=== PATIENT | male | born 1970 | race Caucasian/White ===

== ENCOUNTER 2016-10-23 21:41 | Emergency (ER) | payer MEDICARE ==
[2016-10-23 22:05] LABS: BASOPHILS 0.4 % (0.0-2.0); EOSINOPHILS 2.9 % (0-7); HEMATOCRIT 48.4 % (42.0-54.0); HEMOGLOBIN 16.5 g/dL (13.5-17.5); IMMATURE GRANULOCYTES 0.3 % (0-5); LYMPHOCYTES 33.9 % (15-50); MCH 32.9 pg (26.0-34.0); MCHC 34.1 g/dL (31.0-37.0); MCV 96.6 fL (80.0-100.0); MEAN PLATELET VOLUME 9.7 fL (7.4-10.4); MONOCYTES 5.7 % (2-11); NEUTROPHILS 56.8 % (40-80); PLATELET COUNT 281 10x3/uL (130-400); RBC 5.01 10x6/uL (4.20-6.10); RDW 14.1 % (11.5-14.5)
[2016-10-23 22:16] LABS: ALBUMIN 3.9 g/dL (3.4-5.0); ALKALINE PHOSPHATASE 104 U/L (46-116); BILIRUBIN - TOTAL 0.26 mg/dL (0.2-1.3); CALC OSMOLALITY 280 mosm/kg (275-300); CALCIUM 8.8 mg/dL (8.5-10.1); CARBON DIOXIDE 31.2 mmol/L (21.0-32.0); CHLORIDE - SERUM 101 mmol/L (98-107); CREATININE - SERUM 0.9 mg/dL (0.6-1.3); GLUCOSE 137 mg/dL (74-106); PROTEIN - SERUM 7.8 g/dL (6.4-8.2); SODIUM 140 mmol/L (136-145); UREA NITROGEN 12 mg/dL (7-18); eGFR NON AFRICAN AMERICAN > 90 mL/min (90-120)
[2016-10-23 22:17] LABS: ALT (SGPT) 43 U/L (10-68)
[2016-10-23 22:20] LABS: APPEARANCE CLEAR (CLEAR); BILIRUBIN NEGATIVE (NEGATIVE); COLOR YELLOW (YELLOW); GLUCOSE NEGATIVE (NEGATIVE); KETONE NEGATIVE (NEGATIVE); LEUKOCYTE ESTERASE NEGATIVE (NEGATIVE); NITRITE NEGATIVE (NEGATIVE); PROTEIN NEGATIVE (NEGATIVE); SPECIFIC GRAVITY 1.015 (1.005-1.020); UROBILINOGEN NORMAL (NORMAL)
== END 2016-10-23 23:37 | disposition home or self-care (01) ==
LOC: D.ER 21:41
PROVIDERS: Emergency Medicine
DX: N45.1 Epididymitis (principal); F41.9 Anxiety disorder, unspecified; K21.9 Gastro-esophageal reflux disease without esophagitis; I10 Essential (primary) hypertension; E03.9 Hypothyroidism, unspecified; K27.9 Peptic ulcer, site unspecified, unspecified as acute or chronic, without hemorrhage or perforation; G25.81 Restless legs syndrome

== ENCOUNTER 2016-10-29 02:02 | Emergency (ER) | payer MEDICARE | END 2016-10-29 03:35 | disposition home or self-care (01) | LOC: D.ER 02:02 | DX: N45.1 Epididymitis (principal); F41.9 Anxiety disorder, unspecified; K21.9 Gastro-esophageal reflux disease without esophagitis; I10 Essential (primary) hypertension; E03.9 Hypothyroidism, unspecified; K27.9 Peptic ulcer, site unspecified, unspecified as acute or chronic, without hemorrhage or perforation; G25.81 Restless legs syndrome; F17.200 Nicotine dependence, unspecified, uncomplicated ==

== ENCOUNTER 2016-11-26 20:47 | Emergency (ER) | payer MEDICARE | END 2016-11-26 22:15 | disposition home or self-care (01) | LOC: D.ER 20:47 | DX: S83.8X1A Sprain of other specified parts of right knee, initial encounter (principal); W19.XXXA Unspecified fall, initial encounter; Y93.89 Activity, other specified; Y92.019 Unspecified place in single-family (private) house as the place of occurrence of the external cause; F41.9 Anxiety disorder, unspecified; K21.9 Gastro-esophageal reflux disease without esophagitis; I10 Essential (primary) hypertension; E03.9 Hypothyroidism, unspecified; K27.9 Peptic ulcer, site unspecified, unspecified as acute or chronic, without hemorrhage or perforation; G25.81 Restless legs syndrome; F17.200 Nicotine dependence, unspecified, uncomplicated ==

== ENCOUNTER 2017-01-30 21:34 | Observation (INO) | payer MEDICARE ==
[~2017-01-30] VITALS: Ht 167.6 cm; Wt 119.1 kg
--- NOTE | ~2017-01-30 | HEMODYNAMI ---
PATIENT:CURTIS MADERA MEDICAL RECORD: [id number] : 72 LOCATION:[facility] ADMISSION DATE: 01/30/17 Generatedon:01/31/201713:06 Patient name: CURTIS MADERA Patient #: [id number] SSN: : Date of study: 01/31/2017 Page: Of Hemodynamic Procedure Report Patient Data Patient Demographics Procedure consent was obtained First Name: CURTIS Gender: Male Last Name: SANTY : 1970 Patient #: [id number] Age: 46 year(s) Race: Unknown Additional ID: [id number] Contact details Address: [address] [place] [address] [address]IVE State: [place] City: [place] Zip code: [address] Past Medical History Allergies Allergen Reaction Date Comments Reported Sulfa drugs 01/31/2017 Penicillins 01/31/2017 Other allergy 01/31/2017 TRAMADOL Admission Admission Data Admission Date: 01/30/2017 Admission Time: 23:52 Room #: [facility] Height (in.): 67 BSA: 2.22 (m2) Height (cm.): 170.18 BMI: 39.16 (kg/m2) Weight (lbs.): 250.01 Weight (kg.): 113.4 Lab Results Lab Result Date: 01/31/2017 Lab Result Time: 0:00 Biochemistry Name Units Result Min Max BUN mg/dl 18 --(---*)-- 7 18 Creatinine mg/dl 0.9 --(-*--)-- 0.6 1.3 Troponin l ng/ml 0.017 --(-*--)-- 0 0.06 CBC Name Units Result Min Max Hemoglobin g/dl 16.2 --(--*-)-- 13.5 17.5 Procedure Procedure Types Cath Procedure Diagnostic Procedure [facility] w/Coronaries FFR/IVUS Intra-Coronary IVUS Initial PCI Procedure Coronary Stent Initial Miscellaneous Procedures Moderate Sedation up to 30 minutes Procedure Description Procedure Date Procedure Date: 01/31/2017 Procedure Start Time: 12:42 Procedure End Time: 13:01 Procedure Staff Name Function Praveen Hu MD Performing Physician Chiara Betancourt RN Nurse Howie Garcia RT Monitor Yung Campos RT Scrub Procedure Data Cath Procedure Fluoroscopy Diagnostic fluoroscopy Total fluoroscopy Time: 5 time: 5 min min Diagnostic fluoroscopy Total fluoroscopy dose: 869 dose: 869 mGy mGy Contrast Material Contrast Material Type Amount (ml) Isovue 300 101 Entry Location Entry Primary Successful Side Size Upsize Upsize Entry Closure Baca ccessful Closure Location (Fr) 1 (Fr) 2 (Fr) Remarks Device Remarks Radial Right 6 Fr Mechanical artery Short Compression Diagnostic catheters Device Type Used For End Catheter Placement Terumo 5Fr [place] 110cm LV Angiography catheter Diagnostic Infinity 5Fr Right Coronary AR 2 MOD catheter Angiography Procedure Complications No complications Procedure Medications Medication Administration Route Dosage Oxygen NC 2 l/min Heparin Flush Bag added to field 2 bags (1000units/500ml NS) Lidocaine 2% added to field 20 Radial Cocktail added to field 1 syringe (Verapomil 2mg/Nitro 400mcg/Heparin 1500units) Versed I.V. 1 mg Fentanyl 50 mcg Versed I.V. 1 mg Fentanyl 50 mcg Radial Cocktail I.A. 1 syringe (Verapomil 2mg/Nitro 400mcg/Heparin 1500units) Versed I.V. 1 mg Fentanyl 50 mcg Versed I.V. 1 mg Fentanyl 50 mcg Heparin Bolus I.V. 4000 units Hemodynamics Rest BSA: 2.22 (m2) HGB: 16.2 (g/dl) O2 Consumption: Estimated: 279.46 (ml/min) O2 Co nsumption indexed: Estimated:125.88 (ml/min/m) Heart Rate: 83 (bpm) Pressure Samples Time Site Value (mmHg) Purpose Heart Use Rate(bpm) 12:43 AO 88/6(17) Snapshot 85 Snapshots Pre Cath Intra NCS Post Cath Vital Signs Time Heart Resp SPO2 etCO2 MD3kqoa NIBP (mmHg) Rhythm Pain Sedat ion Rate (ipm) (%) (mmHg) (mmHg) Status Level (bpm) 12:24:50 81 16 100 0 0 148/102(117) NSR 6 (11) , 10(A) Intense 12:29:06 83 20 97 0 0 154/90(109) NSR 6 (11) , 10(A) Intense 12:33:28 80 16 98 0 0 125/67(107) NSR 6 (11) , 10(A) Intense 12:37:42 80 16 100 0 0 120/77(91) NSR 6 (11) , 10(A) Intense 12:41:56 80 19 99 0 0 131/72(94) NSR 6 (11) , 10(A) Intense 12:46:12 86 16 86 0 0 107/49(78) NSR 3 (11) , 10(A) Tolerable 12:50:18 77 16 96 0 0 100/61(82) NSR 1 (11) , 10(A) Very mild 12:54:30 79 16 100 0 0 116/58(76) NSR 1 (11) , 10(A) Very mild 12:58:23 80 14 98 0 0 114/73(91) NSR 1 (11) , 10(A) Very mild Medications Time Medication Route Dose Verified Delivered Reason Note s Effectiveness by by 12:24:26 Oxygen NC 2 l/min Praveen Chiara Per physician Fritz Betancourt RN 12:24:35 Heparin Flush added 2 bags Praveenlisa Morton used for Bag to Fritz Hu MD procedure (1000units/500ml field NS) 12:24:44 Lidocaine 2% added 20ml Praveen Praveen used for to vial Fritz Hu MD procedure field 12:24:51 Radial Cocktail added 1 Praveen Praveen used for (Verapomil to syringe Fritz Hu MD procedure 2mg/Nitro field 400mcg/Heparin 1500units) 12:37:21 Versed I.V. 1 mg Praveen Chiara for sedation Fritz Betancourt RN 12:37:26 Fentanyl 50 mcg Praveen Chiara for sedation Fritz Betancourt RN 12:39:45 Versed I.V. 1 mg Praveen Chiara for sedation Fritz Betancourt RN 12:39:48 Fentanyl 50 mcg Praveen Chiara for sedation Fritz Betancourt RN 12:41:07 Versed I.V. 1 mg Praveen Chiara for sedation Fritz Betancourt RN 12:41:17 Fentanyl 50 mcg Praveen Chiara for sedation Fritz Betancourt RN 12:43:02 Radial Cocktail I.A. 1 Praveen Praveen for (Verapomil syringe Fritz Hu MD vasodilation 2mg/Nitro 400mcg/Heparin 1500units) 12:44:41 Versed I.V. 1 mg Praveen Cleaningca for sedation Fritz Betancourt RN 12:44:47 Fentanyl 50 mcg Praveen Guadarrama for sedation Fritz Betancourt RN 12:54:00 Heparin Bolus I.V. 4000 Praveen Guadarrama for dose units Fritz Betancourt RN anticoagulation verified with dr hu Procedure Log Time Note 12:06:48 Yung Campos RT(R) sent for patient. Start room use. 12:06:49 Time tracking: Regular hours 12:06:53 Plan of Care:Hemodynamics will remain stable., Cardiac rhythm will remain stable., Comfort level will be maintained., Respiratory function will remain adequate., Patient/ family verbilizes understanding of procedure., Procedure tolerated without complication., Recovers from procedure without complications.. 12:20:31 Patient received from PCU to CCL 1 Alert and oriented. Tansferred to table in Supine position. 12:23:32 Warm blankets applied, and ledy hugger turned on for patient comfort. 12:23:32 Correct patient and procedure confirmed by team. 12:23:33 Signed procedure consent form obtained from patient. 12:23:34 ECG and BP/O2 sat monitors applied to patient. 12:23:44 Vital chart was started 12:24:26 Oxygen 2 l/min NC was administered by Chiara Betancourt RN; Per physician; 12:24:35 Heparin Flush Bag (1000units/500ml NS) 2 bags added to field was administered by Praveen Hu MD; used for procedure; 12:24:44 Lidocaine 2% 20ml vial added to field was administered by Praveen Hu MD; used for procedure; 12:24:51 Radial Cocktail (Verapomil 2mg/Nitro 400mcg/Heparin 1500units) 1 syringe added to field was administered by Praveen Hu MD; used for procedure; 12:29:03 Baseline sample Acquired. 12:29:07 Rhythm: sinus rhythm 12:29:08 Full Disclosure recording started 12:29:24 H&P Date Dictated: 01/31/2017 Within 30 days and on chart.. 12:29:25 Pre-procedure instructions explained to patient. 12:29:26 Pre-op teaching completed and patient verbalized understanding. 12:29:28 Family unavailable. 12::29 Patient NPO since Midnight. 12:30:30 Patient allergic to Sulfa drugs 12:30:36 Patient allergic to Penicillins 12:31:06 Patient allergic to Other allergyTRAMADOL 12:31:08 Is the patient allergic to Iodine/contrast media? No. 12:31:15 Is patient on blood thinner?Yes 12:31:18 ACC The patient was administered the following blood thiners within the last 24 hours: ACCPlavix 12:31:19 Patient diabetic? No. 12:31:20 ----Pre-sedation anethsthesia assessment.---- 12:31:22 Previous problem with sedation/anesthesia? No ? 12:31:23 Snore? Yes 12:31:25 Sleep apnea? No 12:31:26 Deviated septum? No 12:31:27 Opens mouth fully? Yes 12:31:29 Sticks out tongue? Yes 12:31:31 Airway obstruction? No ? 12:31:33 Dentures? No ? 12:31:36 Pre procedure: right dorsailis pedis pulse 1+ Palpable, but thready & weak; easily obliterated 12:31:38 Modified Jose's test Ulnar > 7 seconds. 12:31:43 Patient pain scale 6/10 CP. 12:31:48 IV patent on arrival in left hand with 0.9% NaCl at 10ml/hr. 12:32:25 Lab Result : BUN 18 mg/dl 12:32:25 Lab Result : Creatinine 0.9 mg/dl 12:32:25 Lab Result : Hemoglobin 16.2 g/dl 12:32:25 Lab Result : Troponin l 0.017 ng/ml 12:32:28 Lab results completed and on chart. 12:32:31 Right Radial & Right Groin area was prepped with chlora-prep and draped in sterile fashion 12:32:32 Alarms reviewed by R. N. 12:32:32 Sharps counted by scrub and verified by R.N. 12:36:22 --------ALL STOP TIME OUT------ 12:36:23 Final Timeout: patient, procedure, and site verified with staff and physician. All members of the team are in agreement. 12:36:26 Right Radial & Right Groin site verified by team. 12:36:29 Physical assessment completed. ASA score P 2 - A patient with mild systemic disease as per Praveen Hu MD. 12:36:33 Sedation plan: IV Moderate Sedation Versed, Fentanyl 12:37:21 Versed 1 mg I.V. was administered by Chiara Betancourt RN; for sedation; 12:37:26 Fentanyl 50 mcg was administered by Chiara Betancourt RN; for sedation; 12:39:45 Versed 1 mg I.V. was administered by Chiara Betancourt RN; for sedation; 12:39:48 Fentanyl 50 mcg was administered by Chiara Betancourt RN; for sedation; 12:41:07 Versed 1 mg I.V. was administered by Chiara Betancourt RN; for sedation; 12:41:17 Fentanyl 50 mcg was administered by Chiara Betancourt RN; for sedation; 12:41:29 Use device set Radial Dx 12:41:30 Acist Syringe opened to sterile field. 12:41:31 Medline Cath Pack opened to sterile field. 12:41:31 Bag Decanter opened to sterile field. 12:41:31 Terumo 6Fr Slender Glidesheath opened to sterile field. 12:41:32 St Tito 260cm J .035 wire opened to sterile field. 12:41:32 Acist Hand Control opened to sterile field. 12:41:32 Acist Manifold opened to sterile field. 12:41:33 Tegaderm 4 x 4 opened to sterile field. 12:41:33 MBrace Wrist Support opened to sterile field. 12:41:40 Procedure started. 12:42:04 Local anesthetic to right radial artery with Lidocaine 2% by Praveen Hu MD.INITIAL ACCESS ONLY 12:42:12 A 6 Fr Short sheath was inserted into the Right Radial artery 12:42:27 A Terumo 5Fr [place] 110cm catheter was advanced over the wire and used for LV Angiography. 12:42:33 LV angiography performed. 12:42:36 LV gram done using ZENDEJAS 12:42:46 Injector settings: Ml/sec: 5, Volume: 15, 12:43:02 Radial Cocktail (Verapomil 2mg/Nitro 400mcg/Heparin 1500units) 1 syringe I.A. was administered by Praveen Hu MD; for vasodilation; 12:43:29 EF : 60 % 12:44:41 Versed 1 mg I.V. was administered by Chiara Betancourt RN; for sedation; 12:44:47 Fentanyl 50 mcg was administered by Chiara Betancourt RN; for sedation; 12:45:49 LCA angiography performed. 12:45:51 Catheter removed. 12:46:32 A Diagnostic Infinity 5Fr AR 2 MOD catheter was advanced over the wire and used for Right Coronary Angiography. 12:46:39 RCA angiography performed. 12:47:26 Catheter removed. 12:47:44 Flores KnexxLocalisper J 300cm 0.014 guide wire opened to sterile field. 12:47:44 LoanHero BasixCompak Inflation Kit opened to sterile field. 12:48:59 Kinvey [place] Eagleye IVUS Catheter opened to sterile field. 12:49:00 Flickmetronic Launcher 6Fr AR 2.0 guide catheter opened to sterile field. 12:49:38 6 Fr AR 2 guide catheter was inserted over the wire 12:49:41 TrueViewISPER wire advanced. 12:49:43 FFR/IVUS 12:49:44 IVUS catheter advanced over wire. 12:49:46 IVUS pass to RCA lesion performed. 12:54:00 Heparin Bolus 4000 units I.V. was administered by Chiara Betancourt RN; for anticoagulation; dose verified with dr hu 12:54:43 IVUS catheter removed over wire. 12:54:46 Wire removed. 12:55:27 WHISPER wire advanced. 12:56:22 Inflation Number: 1 A Biofreedom 3.0 x 28 stent (No Cost Implant) was prepped and advanced across the Mid RCA. The stent was deployed at 15 ENEDELIA for 0:12 (min:sec). 12:56:24 Stent catheter was removed intact over wire. 12:56:25 Wire removed. 12:56:25 Guide catheter removed. 12:56:31 Contrast amount:Isovue 300 101ml. 12:56:37 Sheath removed intact; hemostasis achieved with Mechanical Compression to the Right Radial artery. 12:56:38 Procedure ended.(Physican Out) 12:57:07 Fluoroscopy time 05.00 minutes. 12:57:11 Fluoroscopy dose: 869 mGy 12:57:11 Flurop Dose total: 869 12:57:35 Sharps counted by scrub and verified by R.N. 12:58:36 TR band inflated with 10cc of air. 12:59:10 Insertion/operative site no bleeding no hematoma. 12:59:12 Post-op/insertion site Right Femoral artery dressed using a 4 x 4 and Tegaderm. 12:59:15 Post right femoral artery:stable 12:59:18 Post Procedure Pulses reassessed and unchanged 12:59:21 Post-procedure physical assessment completed. ASA score P 2 - A patient with mild systemic disease as per Praveen Hu MD. 12:59:24 Post procedure rhythm: sinus rhythm 12:59:25 Post procedure instruction explained to patient.Patient verbalizes understanding. 12:59:47 Procedure type changed to Cath procedure, Diagnostic procedure, LHC, LHC w/Coronaries, FFR/IVUS, Intra-Coronary IVUS Initial, PCI procedure, Coronary Stent Initial, Miscellaneous Procedures, Moderate Sedation up to 30 minutes 12:59:50 Procedure and supply charges have been captured, reviewed, submitted and are correct. 13:00:11 Terumo TR Band Standard opened to sterile field. 13:00:46 Procedure Complication : No complications 13:00:49 Vital chart was stopped 13:00:49 See physician's report for complete and final results. 13:00:52 Report given to PCU. 13:00:56 Patient transfered to PCU with Bed. 13:01:01 Procedure ended. 13:01:01 Full Disclosure recording stopped 13:01:09 End room use (Document Last) 13:01:13 ACC-PCI Only Patient was given prescriptions, or instructed by Praveen Hu MD to start/continue the following medications upon discharge: Plavix 13:04:55 Patient Height : 67 cm 13:04:59 Patient Weight : 250.01 kg Intervention Summary Intervention Notes Time ActionType Lesion and Equipment Action# Pressure Duration Attributes Used 12:56:22 Place stent Mid RCA Biofreedom 1 15 00:12 3.0 x 28 stent (No Cost Implant) Device Usage Item Name Manufacture Quantity Catalog Hospital Part Current Minimal Lot# / Number Charge Number Stock Stock Serial# Code Acist Acist 1 32628 961946 837060 588005 20 Syringe Medical Systems Inc Medline Cardinal 1 [id number] 272598 02607 983841 5 Cath Pack Health Bag Microtek 1 2001S 2271254 94005 214842 5 Decanter Medical Inc. Terumo 6Fr Terumo 1 [id number] 683977 712706 316791 [address] Tito St Tito 1 337453 475922 550685 538548 30 260cm J .035 wire Acist Hand Acist 1 09671 930374 481844 687511 5 Control Medical Systems Inc Acist Acist 1 93994 226941 741507 556029 5 Manifold Medical Systems Inc Tegaderm 4 3M 1 1626W 909342 315499 133185 5 x 4 MBrace Advanced 1 140-0250-00 068120 17361 627641 5 Wrist Vascular Support Dynamics Terumo 5Fr Terumo 1 88-6669 305329 398213 312724 5 [place] 110cm catheter Diagnostic Cardinal 1 [id number] 191785 602165 276297 20 Telovations Health 5Fr AR 2 MOD catheter Flores Flores 1 [id number] 454001 201135 303902 5 Whisper J Vascular 300cm 0.014 guide wire Merit Merit 1 [id number] 042771 167241 209353 15 [facility] Medical Inflation Kit [place] 1 [id number] 356523 208806 753344 8 [place] Eagleye IVUS Catheter Medtronic Medtronic 1 [id number] 450933 09840 908667 1 Launcher 6Fr AR 2.0 guide catheter Biofreedom Biosensors 1 [id number] 066480 952189 5 [id number] 3.0 x 28 [place] SA stent (No Cost Implant) Terumo TR Terumo 1 [id number] 754586 723830 657911 40 Band Standard Signature Audit [place] Stage Time Signature Unsigned Intra-Procedure 01/31/2017 Howie Garcia 1:06:35 PM RT(R) Signatures Monitor : Howie Garcia RT Signature : Date : Time : [facility] [address] [place] [address]
[2017-01-30 22:20] LABS: BASOPHILS 0.3 % (0-2); EOSINOPHILS 1.7 % (0-7); HEMATOCRIT 47.4 % (42.0-54.0); HEMOGLOBIN 16.2 g/dL (13.5-17.5); IMMATURE GRANULOCYTES 0.2 % (0-5); LYMPHOCYTES 31.4 % (15-50); MCH 32.3 pg (26.0-34.0); MCHC 34.2 g/dL (31.0-37.0); MCV 94.4 fL (80.0-100.0); MEAN PLATELET VOLUME 9.9 fL (7.4-10.4); MONOCYTES 6.7 % (2-11); NEUTROPHILS 59.7 % (40-80); PLATELET COUNT 324 10x3/uL (130-400); RBC 5.02 10x6/uL (4.20-6.10); RDW 13.9 % (11.5-14.5); WBC 11.4 10x3/uL (4.8-10.8)
[2017-01-30 22:46] LABS: ALBUMIN 4.2 g/dL (3.4-5.0); ALKALINE PHOSPHATASE 116 U/L (46-116); ALT (SGPT) 68 U/L (10-68); BILIRUBIN - TOTAL 0.48 mg/dL (0.2-1.3); CALC OSMOLALITY 281 mosm/kg (275-300); CALCIUM 9.4 mg/dL (8.5-10.1); CARBON DIOXIDE 27.9 mmol/L (21.0-32.0); CHLORIDE - SERUM 101 mmol/L (98-107); CREATININE - SERUM 0.9 mg/dL (0.6-1.3); GLUCOSE 123 mg/dL (74-106); POTASSIUM - SERUM 3.5 mmol/L (3.5-5.1); PROTEIN - SERUM 8.2 g/dL (6.4-8.2); SODIUM 140 mmol/L (136-145); UREA NITROGEN 18 mg/dL (7-18); eGFR NON AFRICAN AMERICAN > 90 mL/min (90-120)
[2017-01-30 22:55] LABS: CHOLESTEROL, TOTAL 220 mg/dL (0-200); CKMB 0.1 U/L (0.0-3.6); CREATINE KINASE 62 UL (21-232); HDL CHOLESTEROL 37 mg/dL (32-96); LDL CHOLESTEROL 130 mg/dL (0-100); LDL-HDL RATIO 3.5 ratio (1.5-3.5); TRIGLYCERIDE 269 mg/dL (30-200)
[2017-01-30 22:58] LABS: TROPONIN-I < 0.017 ng/mL (0.000-0.060)
[2017-01-31] VITALS: BP 141/84
[2017-01-31] MEDS ORDERED: VIIBRYD40 MG PO (00:40)
[2017-01-31] MEDS ORDERED: LEVOTHYROXINE100 MCG PO (00:40)
[2017-01-31] MEDS ORDERED: NEXIUM40 MG PO (00:41)
[2017-01-31] MEDS ORDERED: ROPINIROLE HCL2 MG PO (00:41)
[2017-01-31] MEDS ORDERED: ZESTORETIC 20-1 EACH PO (00:42)
[2017-01-31] MEDS ORDERED: OXYCODONE HCL10 MG PO (00:42)
--- NOTE | 2017-01-31 00:47 | NUR ---
PT C/O CHEST PAIN 10/10 ON ARRIVAL TO THE FLOOR.PER REPORT PT RECEIVED NITRO X2 IN ER AND A NITRO PATCH. PER THE PT THE NITRO ALREADY GIVEN HAS GIVEN VERY LITTLE RELIEF. CALL TO DR OHARA FOR FURTHER ORDERS FOR PAIN MEDICATION ORDERS.
[2017-01-31 01:32] VITALS: BP 141/84; Ht 167.6 cm; Wt 119.1 kg
[2017-01-31 02:45] LABS: CKMB 0.3 U/L (0.0-3.6); CREATINE KINASE 60 UL (21-232)
[2017-01-31 02:56] LABS: TROPONIN-I < 0.017 ng/mL (0.000-0.060)
[2017-01-31 04:00] VITALS: BP 143/87
[2017-01-31 08:29] VITALS: BP 138/90
[2017-01-31 08:42] LABS: CKMB 0.6 U/L (0.0-3.6); CREATINE KINASE 69 UL (21-232)
[2017-01-31 08:44] LABS: TROPONIN-I < 0.017 ng/mL (0.000-0.060)
[2017-01-31 12:05] VITALS: BP 136/74
--- NOTE | 2017-01-31 12:27 | NUR ---
PRE-OPS GIVEN. TO WARRANTY CLERK BY BED.
[2017-01-31] MEDS ORDERED: ASPIRIN81 MG PO (14:19)
[2017-01-31] MEDS ORDERED: PLAVIX75 MG PO (14:19)
[2017-01-31 15:05] LABS: CKMB 0.4 U/L (0.0-3.6); CREATINE KINASE 125 UL (21-232)
[2017-01-31 15:06] LABS: TROPONIN-I < 0.017 ng/mL (0.000-0.060)
[2017-01-31 16:00] VITALS: BP 142/81
--- NOTE | 2017-01-31 16:53 | NUR ---
TR BAND DCD WITHOUT BLEEDING OR HEMATOMA NOTED. EKG AND BLOOD DRAW COMPLETED.
--- NOTE | 2017-01-31 17:08 | NUR ---
IV AND TELEMETRY DCD. DC PLANS GIVEN. UNDERSTANDING VOICED. LEAVING HOSP WITH FRIEND.
--- NOTE | 2017-02-01 18:08 | OP ---
PATIENT NAME: CURTIS MADERA MEDICAL RECORD: [id number] :72 LOCATION:D.M2 D.2117 ADMISSION DATE:01/30/17 SURGEON: MARCY OHARA MD DATE OF OPERATION: 01/31/2017 PROCEDURES: 1. PTCA stent of the RCA. 2. Intravascular ultrasound. 3. Left heart catheterization. 4. Selective coronary angiography. 5. Left ventriculogram. INDICATION: Chest pain compatible with angina. PROCEDURE PERFORMED: After informed consent was obtained and after detailed explanation of risks, benefits as well as alternative therapies, the patient elected to proceed with angiogram and angioplasty. The right radial area was prepped and draped in normal sterile fashion. The right radial artery was cannulated via modified Seldinger technique with placement of 6-Faroese sheath. All catheters exchanged through this sheath. FINDINGS: Left ventriculogram was performed in standard 30-degree ZENDEJAS view, reveals good cardiac wall motion throughout all segments. Overall ejection fraction estimated 60%. SELECTIVE CORONARY ANGIOGRAPHY: 1. Left main showed no significant angiographic disease. 2. Left anterior descending has moderate irregularities, but no flow-limiting stenosis. 3. The left circumflex shows moderate irregularities, but no flow-limiting stenosis. 4. Right coronary has greater than 70% stenosis throughout the entire mid vessel confirmed by intravascular ultrasound. PTCA STENT OF THE RIGHT CORONARY ARTERY: The stent used is a 3.0 x 28 mm BioFreedom. The lesion was 25 mm long, MONSE 3 flow before and after the intervention in a 3.0 vessel. OVERALL IMPRESSION: Successful percutaneous transluminal coronary angioplasty stent of the right coronary artery going from greater than 70% initial stenosis to 0% residual. TRANSINT:[id number] Voice Confirmation ID: [id number] DOCUMENT ID: [id number] MARCY OHARA MD at 1808 CC: [id number] DICTATION DATE: 01/31/17 1311 FOAM CHARGER: 01/31/179 DIS IN 01/31/[address] [address]
--- NOTE | 2017-02-01 18:08 | HP ---
PATIENT: CURTIS MADERA MEDICAL RECORD: [id number] ACCOUNT: [id number] LOCATION:[address] : 72 ADMISSION DATE: 01/30/17 HISTORY AND PHYSICAL EXAMINATION DIAGNOSES: 1. Unstable angina. 2. Coronary artery disease. 3. Strong family history of coronary artery disease. 4. Hypertension. 5. Hypothyroidism, on replacement. 7. History of gastrointestinal bleed. 8. Gastroesophageal reflux disease. HISTORY OF PRESENT ILLNESS: This is a gentleman who presents with chest pain. Two weeks ago, he presented to [facility] with chest pain. He was told he had an elevated troponin. He had an evaluation with stress test. He was told that this was normal. He has continued to have episodes of chest pain. He presents now to our facility with chest pain. His EKG is with nonspecific ST-T abnormalities inferolaterally. He has a history of GI bleed approximately 2 years ago. He states that he has ongoing GERD and cannot take a prolonged antiplatelet therapy secondary to this. He cannot take even prolonged aspirin without recurrent severe GERD despite his GI medication, which is Nexium. PHYSICAL EXAMINATION: GENERAL APPEARANCE: Well-nourished, well-developed, appears stated age. Level of distress, comfortable. PSYCHIATRIC: Mental status, alert, normal affect. Orientation, oriented to time, place and person. EYES: Lids and conjunctiva, noninjected. No discharge, no pallor. ENT: Lips, teeth, gums, normal dentition. Oropharynx, no cyanosis, no pallor. NECK: Carotid arteries, bilateral normal upstroke, no bruits, no thrills. JUGULAR VEINS: No jugular venous pressure or distention. CERVICAL LYMPH NODES: Nontender, nonenlarged. THYROID: Not enlarged. Nontender. No nodules. LUNGS: Respiratory effort, unlabored. CHEST: Normal curvature. No thoracic deformity. No chest wall tenderness. Percussion, resonant. Auscultation, clear. No wheezes, no rales, no rhonchi. CARDIOVASCULAR: Precordial exam, nondisplaced. No heaves or pericardial thrills. Rate and rhythm, regular. Heart sounds, normal S1, normal S2. No S3, no gallop, no rub. Systolic murmur, not heard. Diastolic murmur, not heard. EXTREMITIES: No cyanosis, no edema. Peripheral pulses, full and equal in all extremities, except as noted. No bruits appreciated. ABDOMEN: Soft, nondistended. Normal aorta. No bruit. Nontender. No masses. Liver, nontender, no hepatomegaly. Spleen, nontender, no splenomegaly. MUSCULOSKELETAL: No joint tenderness. No joint swelling. No erythema. NEUROLOGICAL: Normal gait, normal strength, normal tone. SKIN: Warm and dry. REVIEW OF SYSTEMS: The patient reports easy bruising but reports no swollen glands. The patient reports no fever, no night sweats, no significant weight gain, no significant weight loss. No significant exercise tolerance. The patient reports no dry eyes, no irritation, no vision change. Patient reports no difficulty hearing and no ear pain. Patient reports no frequent nose bleeds or nose and sinus problems. Patient reports on arm pain on exertion. No HISTORY AND PHYSICAL [id number] CUTRIS MADERA shortness of breath while lying down. No history of heart murmur. Patient reports no cough, no wheezing or coughing up blood. Patient reports no abdominal pain, no vomiting. Normal appetite. No diarrhea and not vomiting blood. No nausea and no constipation. Patient reports no incontinence. No difficulty urinating. No hematuria. No increased frequency. Patient reports no muscle aches. No weakness, no arthralgias, no back pain. No swelling of the extremities. Patient reports no abnormal mole, no jaundice, no rashes. Reports no loss of consciousness. No weakness and no numbness. No seizures, dizziness, or headaches. The patient reports no depression, no sleep disturbance, feeling safe in a relationship and no alcohol abuse. Patient reports on fatigue. Reports no runny nose or sinus pressure. No itching, no hives, and no frequent sneezing. OVERALL IMPRESSION: Chest pain compatible with angina in the usual history that he had a positive troponin. Continued to have chest pain, but no cardiac catheterization was performed. We will plan for cardiac catheterization. We will make sure we use a stent only 30 days of Plavix secondary to the intolerance of antiplatelet medications with his history of GI bleed and severe gastroesophageal reflux disease. TRANSINT:[id number] Voice Confirmation ID: [id number] DOCUMENT ID: [id number] MARCY OHARA MD at 1808 CC: [id number] DICTATION DATE: 01/31/17 1304 CAFETERIA COUNTER ATTENDANT: 01/31/17 1635 DIS IN 01/31/17 [facility] [address] [facility]
== END 2017-01-31 17:18 | disposition home or self-care (01) ==
LOC: D.ER 21:34 → OBSVTIME 23:52 → D.M2 23:52
PROVIDERS: Emergency Medicine; ADMIT Internal Medicine Interventional Cardiology
DX: I25.110 Atherosclerotic heart disease of native coronary artery with unstable angina pectoris (principal); Z00.6 Encounter for examination for normal comparison and control in clinical research program; I10 Essential (primary) hypertension; E03.9 Hypothyroidism, unspecified; K21.9 Gastro-esophageal reflux disease without esophagitis
CPT/HCPCS: 93458; 92978; C9600

== ENCOUNTER 2017-02-02 23:14 | Observation (INO) | payer MEDICARE ==
[~2017-02-02] VITALS: Ht 167.6 cm; Wt 122.3 kg
--- NOTE | ~2017-02-02 | OP ---
PATIENT NAME: CURTIS MADERA MEDICAL RECORD: [id number] :72 LOCATION:D.M2 D.2103 ADMISSION DATE:02/03/17 SURGEON: ABBIE STARKS M.D. DATE OF OPERATION: 02/03/2017 Catheterization Report PROCEDURES PERFORMED: 1. Selective coronary artery disease. 2. Left heart catheterization with ventriculogram. 3. Aortic root injection. INDICATION: A 46-year-old gentleman status post stenting 2 days ago, presents with recurrent angina. He has not taken his antiplatelet therapy. EQUIPMENT USED: A 5-Indonesian JL4, Glen right, pigtail catheter. DESCRIPTION OF PROCEDURE: A 5-Indonesian sheath was inserted in retrograde fashion in the right common femoral artery. Next, selective coronary angiography was performed in standard 5-Indonesian JL4 and Glen right. Left heart catheterization performed using pigtail catheter. The pigtail catheter was then pulled back in the ascending aorta to visualize the aortic root. CORONARY ANATOMY: 1. Left main: Left main trunk is large in caliber. It gives rise to the LAD and circumflex. There is no obstruction. 2. LAD: This is a large caliber vessel extending to the apex. There is a smooth smooth-walled vessel and angiographically normal. 3. Circumflex: This vessel is moderate in caliber. It provides the lateral branch in mid segment. The circumflex and lateral branch are smooth-walled and vessel is angiographically normal. 4. Right coronary: This vessel is moderate in caliber and dominant. The mid vessel has been stented. The stent is widely patent. There is no evidence of restenosis or thrombosis. 5. Left ventricle: Left ventricle is normal in size and function. No wall motion abnormalities are seen. Its ejection fraction is 55%. 6. Ascending aorta: Because of the patient's persistent chest pain, aortogram was performed to rule out dissection. The ascending aorta is normal size. There is no insufficiency. There is no evidence of stenosis. There is no evidence of dissection. IMPRESSION: 1. Widely patent stent in the right coronary artery without evidence of thrombosis. 2. Normally ascending aorta. RECOMMENDATIONS: I suspect his chest pain is noncardiac in origin. I will place him back on Effient and continue with medical management. TRANSINT:[id number] Voice Confirmation ID: [id number] DOCUMENT ID: [id number] OPERATIVE REPORT [id number] CURTIS MADERAABBIE NUNES M.D. CC: [id number] DICTATION DATE: 02/03/17 1217 INDEPENDENT CONSULTANT: 02/04/17 0045 DIS IN 02/03/17 1910 [place] [id number]
--- NOTE | ~2017-02-02 | HEMODYNAMI ---
PATIENT:CURTIS MADERA MEDICAL RECORD: [id number] : 72 LOCATION:[facility] D2103 ADMISSION DATE: 02/03/17 Generatedon:02/03/201712:18 Patient name: CURTIS MADERA Patient #: [id number] SSN: : Date of study: 02/03/2017 Page: Of Hemodynamic Procedure Report Patient Data Patient Demographics Procedure consent was obtained First Name: CURTIS Gender: Male Last Name: SANTY : 1970 Patient #: [id number] Age: 46 year(s) Race: Unknown Additional ID: [id number] Contact details [address]: [address] [place] [address] DRIVE State: [place] City: [place] Zip code: [address] Past Medical History Allergies Allergen Reaction Date Comments Reported Sulfa drugs 01/31/2017 Penicillins 01/31/2017 Other allergy 01/31/2017 TRAMADOL Admission Admission Data Admission Date: 02/03/2017 Admission Time: 0:57 Room #: D2103 Lab Results Lab Result Date: 02/03/2017 Lab Result Time: 0:00 Biochemistry Name Units Result Min Max CK-MB ng/ml 0.4 --(*---)-- 0 3.6 Creatinine mg/dl 0.8 --(-*--)-- 0.6 1.3 Creatinine l 99 --(-*--)-- 21 215 Kinase Troponin l ng/ml 0.017 --(-*--)-- 0 0.06 CBC Name Units Result Min Max Hemoglobin g/dl 14.8 --(-*--)-- 13.5 17.5 Procedure Procedure Types Cath Procedure Diagnostic Procedure [facility] w/Coronaries Aortic Root Angiography Miscellaneous Procedures Moderate Sedation up to 15 minutes Procedure Description Procedure Date Procedure Date: 02/03/2017 Procedure Start Time: 12:03 Procedure End Time: 12:17 Procedure Staff Name Function Miguel Rivera MD Performing Physician Daisha Galindo RT Scrub Costa Cortes RN Nurse Rosa Vance RT Monitor Yung Campos RT Monitor Procedure Data Cath Procedure Fluoroscopy Diagnostic fluoroscopy Total fluoroscopy Time: 1.7 time: 1.7 min min Diagnostic fluoroscopy Total fluoroscopy dose: 752 dose: 752 mGy mGy Contrast Material Contrast Material Type Amount (ml) Isovue 300 94 Entry Location Entry Primary Successful Side Size Upsize Upsize Entry Closure Succes sful Closure Location (Fr) 1 (Fr) 2 (Fr) Remarks Device Remarks Femoral Right 5 Fr Exoseal artery Estimated blood loss: 10 ml Diagnostic catheters Device Type Used For End Catheter Placement Cordis 5Fr JL 4.0 Procedure Catheter (MP) Cordis 5Fr 3DRC Catheter Procedure (MP) Cordis 5Fr Pigtail Procedure Catheter (MP) Procedure Complications No complications Procedure Medications Medication Administration Route Dosage Oxygen NC 2 l/min Heparin Flush Bag added to field 2 bags (1000units/500ml NS) 0.9% NaCl I.V. 100 ml/hr Effient P.O. 60 mg Fentanyl I.V. 50 mcg Versed I.V. 1 mg Fentanyl I.V. 50 mcg Versed I.V. 1 mg Hemodynamics Rest HGB: 14.8 (g/dl) Heart Rate: 77 (bpm) Pressure Samples Time Site Value (mmHg) Purpose Heart Use Rate(bpm) 12:06 AO 146/100(121) Snapshot 71 12:10 LV 150/11,35 Snapshot 74 12:11 AO 147/92(116) Pullback 79 12:11 LV 156/14,35 Pullback 79 Gradients Valve Time Site 1 Site 2 Mean SEP/DFP Peak To Heart Use (mmHg) (sec/min) Peak Rate (mmHg) (bpm) Aortic 12:11 LV AO 13 7 9 79 156/14,35 147/92(116) Calculations Valve P-P Mean Valve Index Valve Source Name Gradient Area Flow (cm2) Aortic 9 13 9 13 Snapshots Pre Cath Intra NCS Post Cath Vital Signs Time Heart Resp SPO2 etCO2 [id number] NIBP (mmHg) Rhythm Pain Sedation Rate (ipm) (%) (mmHg) (mmHg) Status Level (bpm) 11:53:24 75 18 100 0 0 159/88(117) NSR 0 (11) 10(A) , No pain 11:58:01 81 16 98 0 0 154/76(104) NSR 0 (11) 10(A) , No pain 12:02:25 79 16 95 0 0 136/73(104) NSR 0 (11) 10(A) , No pain 12:06:47 80 18 96 0 0 141/84(103) NSR 0 (11) 9(A) , No pain 12:11:13 87 17 96 0 0 154/81(125) NSR 0 (11) 9(A) , No pain 12:15:40 87 19 96 0 0 134/76(103) NSR 0 (11) 9(A) , No pain Medications Time Medication Route Dose Verified Delivered Reason Notes Ef fectiveness by by 11:53:25 Oxygen NC 2 Costa Costa Per l/min Sebastian Cortes RN physician RN 11:53:36 Heparin Flush added 2 Costa Costa used for Bag to bags Sebastian Cortes RN procedure (1000units/500ml field RN NS) 11:53:52 0.9% NaCl I.V. 100 Costa Costa Per ml/hr Sebastian Cortes RN physician RN 11:59:26 Effient P.O. 60 mg Costa Costa for Sebastian Cortes RN antiplatelet RN therapy 12:00:32 Fentanyl I.V. 50 Costa Costa for sedation mcg Sebastian Cortes RN RN 12:00:42 Versed I.V. 1 mg Costa Costa for sedation Sebastian Cortes RN RN 12:03:54 Fentanyl I.V. 50 Costa Costa for sedation mcg Sebastian Cortes RN RN 12:03:59 Versed I.V. 1 mg Costa Costa for sedation Sebastian Cortes RN construction electrician Log Time Note 11:31:10 Miguel Rivera MD sent for patient. Start room use. 11:31:11 Time tracking: Regular hours 11:31:15 Plan of Care:Hemodynamics will remain stable., Cardiac rhythm will remain stable., Comfort level will be maintained., Respiratory function will remain adequate., Patient/ family verbilizes understanding of procedure., Procedure tolerated without complication., Recovers from procedure without complications.. 11:43:39 Patient received from PCU to CCL 1 Alert and oriented. Tansferred to table in Supine position. 11:43:40 Warm blankets applied, and ledy hugger turned on for patient comfort. 11:43:41 Correct patient and procedure confirmed by team. 11:43:42 Signed procedure consent form obtained from patient. 11:43:43 ECG and BP/O2 sat monitors applied to patient. 11:43:44 Full Disclosure recording started 11:51:57 Vital chart was started 11:52:44 Baseline sample Acquired. 11:52:56 Rhythm: sinus rhythm 11:53:07 H&P Date Dictated: 02/03/2017 Within 30 days and on chart.. 11:53:09 Pre-procedure instructions explained to patient. 11:53:09 Pre-op teaching completed and patient verbalized understanding. 11:53:10 Family in patients room. 11:53:12 Patient NPO since Midnight. 11:53:25 Oxygen 2 l/min NC was administered by Costa Cortes RN; Per physician; 11:53:36 Heparin Flush Bag (1000units/500ml NS) 2 bags added to field was administered by Costa Cortes RN; used for procedure; 11:53:42 Is the patient allergic to Iodine/contrast media? No. 11:53:46 Is patient on blood thinner?Yes 11:53:49 ACC The patient was administered the following blood thiners within the last 24 hours: ACCEffient 11:53:52 0.9% NaCl 100 ml/hr I.V. was administered by Costa Cortes RN; Per physician; 11:54:04 Effient given upon arrival to color laboratory technician. 11:56:06 Patient diabetic? No. 11:56:10 Previous problem with sedation/anesthesia? No ? 11:56:11 Snore? Yes 11:56:12 Sleep apnea? Yes 11:56:12 Deviated septum? No 11:56:13 Opens mouth fully? Yes 11:56:14 Sticks out tongue? Yes 11:56:16 Airway obstruction? No ? 11:56:20 Dentures? No ? 11:56:24 Pre procedure: right dorsailis pedis pulse 2+ Normal; easily identifiable; not easily obliterated 11:56:25 Patient pain scale 0/10 ?. 11:56:36 IV patent on arrival in right forearm with 0.9% NaCl at [facility]. 11:57:15 Lab Result : CK-MB 0.4 ng/ml 11:57:15 Lab Result : Creatinine 0.8 mg/dl 11:57:15 Lab Result : Creatinine Kinase 99 l 11:57:15 Lab Result : Hemoglobin 14.8 g/dl 11:57:15 Lab Result : Troponin l 0.017 ng/ml 11:57:33 Lab results completed and on chart. 11:57:36 Right groin area was prepped with chlora-prep and draped in sterile fashion 11:57:37 Alarms reviewed by R. N. 11:57:37 Sharps counted by scrub and verified by R.N. 11:59:26 Effient 60 mg P.O. was administered by Costa Cortes RN; for antiplatelet therapy; 11:59:26 Use device set Femoral Dx 11:59:28 Acist Syringe opened to sterile field. 11:59:31 Bag Decanter opened to sterile field. 11:59:32 Medline Cath Pack opened to sterile field. 11:59:32 Terumo 5Fr Armuchee Sheath opened to sterile field. 11:59:33 St Tito 260cm J .035 wire opened to sterile field. 11:59:38 Acist Hand Control opened to sterile field. 11:59:38 Acist Manifold opened to sterile field. 11:59:39 Diagnostic Infinity 5Fr Multipack catheter opened to sterile field. 11:59:40 Tegaderm 4 x 4 opened to sterile field. 12:00:07 Final Timeout: patient, procedure, and site verified with staff and physician. All members of the team are in agreement. 12:00:09 Right groin site verified by team. 12:00:12 Physical assessment completed. ASA score P 2 - A patient with mild systemic disease as per Miguel Rivera MD. 12:00:14 Sedation plan: IV Moderate Sedation Versed, Fentanyl 12:00:32 Fentanyl 50 mcg I.V. was administered by Costa Cortes RN; for sedation; 12:00:42 Versed 1 mg I.V. was administered by Costa Cortes RN; for sedation; 12:01:43 Procedure started. 12:03:40 Local anesthetic to right femoral artery with Lidocaine 2% by Miguel Rivera MD.INITIAL ACCESS ONLY 12:03:48 A 5 Fr sheath was inserted into the Right Femoral artery 12:03:54 Fentanyl 50 mcg I.V. was administered by Costa Cortes RN; for sedation; 12:03:59 Versed 1 mg I.V. was administered by Costa Cortes RN; for sedation; 12:06:15 A Cordis 5Fr JL 4.0 Catheter (MP) was advanced over the wire and used for Procedure. 12:06:51 LCA angiography performed. 12:07:04 Rosa Vance RT(R) was relieved by Yung Campos RT(R) as monitoring person 12:08:15 Catheter exchanged over wire. 12:08:23 A Cordis 5Fr 3DRC Catheter (MP) was advanced over the wire and used for Procedure. 12:09:04 RCA angiography performed. 12:09:10 Catheter exchanged over wire. 12:10:40 A Cordis 5Fr Pigtail Catheter (MP) was advanced over the wire and used for Procedure. 12:10:46 LV angiography performed. 12:10:47 LV gram done using ZENDEJAS 12:11:06 EF : 55 % 12:11:10 LV hemodynamics recorded. 12:11:13 Injector settings: Ml/sec: 10, Volume: 20, 12:11:28 Aortic Root visualized 12:11:34 Injector settings: Ml/sec: 15, Volume: 30, 12:12:39 Catheter removed. 12:13:59 Sheath removed intact; hemostasis achieved with Exoseal to the Right Femoral artery. 12:14:02 Procedure ended.(Physican Out) 12:14:10 Cordis 6Fr Exoseal opened to sterile field. 12:14:28 Fluoroscopy time 01.70 minutes. 12:14:33 Flurop Dose total: 752 12:14:33 Fluoroscopy dose: 752 mGy 12:14:37 Contrast amount:Isovue 300 94ml. 12:14:38 Sharps counted by scrub and verified by R.N. 12:14:40 Insertion/operative site no bleeding no hematoma. 12:14:54 Post-op/insertion site Right Femoral artery dressed using a 4 x 4 and Tegaderm. 12:14:56 Post Procedure Pulses reassessed and unchanged 12:14:58 Post-procedure physical assessment completed. ASA score P 2 - A patient with mild systemic disease as per Miguel Rivera MD. 12:15:01 Post procedure rhythm: unchanged. 12:15:03 Estimated blood loss: 10 ml 12:15:06 Post procedure instruction explained to patient.Patient verbalizes understanding. 12:15:06 Patient needs reinforcement of post procedure teaching. 12:15:17 Procedure type changed to Cath procedure, Diagnostic procedure, LHC, LHC w/Coronaries, Aortic Root Angiography, Miscellaneous Procedures, Moderate Sedation up to 15 minutes 12:15:19 Procedure and supply charges have been captured, reviewed, submitted and are correct. 12:15:22 Procedure Complication : No complications 12:15:55 IV Extension Set opened to sterile field. 12:17:32 Vital chart was stopped 12:17:33 See physician's report for complete and final results. 12:17:41 Report given to PCU. 12:17:45 Patient transfered to PCU with Bed. 12:17:48 Procedure ended. 12:17:48 Full Disclosure recording stopped 12:18:27 End room use (Document Last) Device Usage Item Name Manufacture Quantity Catalog Hospital Part Current Minimal Lo t# / Number Charge Number Stock Stock Serial# Code Acist Acist 1 [id number] [id number] 502191 406262 20 Syringe Medical Systems Inc Bag Microtek 1 2002S 118204 33309 634654 5 Jeb[employer] Inc. Medline Cardinal 1 [id number] 801336 35523 438225 5 Cath Pack Health Terumo 5Fr Terumo 1 [id number] 346491 724074 830408 [address] St Tito 1 [id number] 102769 120521 470012 30 260cm J .035 wire Acist Hand Acist 1 57531 807642 488610 117642 5 Control Medical Systems Inc Acist Acist 1 22709 840382 415143 546257 5 Manifold Medical Systems Inc Diagnostic Cardinal 1 [id number] 200935 51096 458499 30 Infinity Health 5Fr Multipack catheter Tegaderm 4 3M 1 1626W 952618 222458 189139 5 x 4 Cordis 5Fr Cardinal 1 888581 5 JL 4.0 Health Catheter (MP) Cordis 5Fr Cardinal 1 154522 5 3DRC Health Catheter (MP) Cordis 5Fr Cardinal 1 253709 5 Pigtail Health Catheter (MP) Cordis 6Fr Cardinal 1 EX600 005936 205700 693614 10 [facility] Health IV Hospira 1 69925-23 644492 57556 411710 5 Extension Set Signature Audit [place] Stage Time Signature Unsigned Intra-Procedure 02/03/2017 Yung Campos 12:18:47 PM RT(R) Signatures Monitor : Rosa Signature : Counts RT Date : Time : Monitor : Yung Campos RT Signature : Date : Time : [address] [place] [address]
[~2017-02-02 23:14] MED LIST: ASPIRIN81 MG PO; LEVOTHYROXINE100 MCG PO; NEXIUM40 MG PO; OXYCODONE HCL10 MG PO; PLAVIX75 MG PO; ROPINIROLE HCL2 MG PO; VIIBRYD40 MG PO; ZESTORETIC 20-1 EACH PO
[2017-02-02 23:41] LABS: BASOPHILS 0.3 % (0-2); HEMATOCRIT 45.3 % (42.0-54.0); HEMOGLOBIN 15.3 g/dL (13.5-17.5); IMMATURE GRANULOCYTES 0.3 % (0-5); LYMPHOCYTES 32.7 % (15-50); MCH 32.1 pg (26.0-34.0); MCHC 33.8 g/dL (31.0-37.0); MCV 95.2 fL (80.0-100.0); MEAN PLATELET VOLUME 10.7 fL (7.4-10.4); MONOCYTES 4.2 % (2-11); NEUTROPHILS 60.5 % (40-80); PLATELET COUNT 319 10x3/uL (130-400); RBC 4.76 10x6/uL (4.20-6.10); RDW 13.7 % (11.5-14.5); WBC 12.3 10x3/uL (4.8-10.8)
[2017-02-02 23:57] LABS: ALBUMIN 4.1 g/dL (3.4-5.0); ALKALINE PHOSPHATASE 114 U/L (46-116); ALT (SGPT) 59 U/L (10-68); CALC OSMOLALITY 282 mosm/kg (275-300); CALCIUM 9.2 mg/dL (8.5-10.1); CARBON DIOXIDE 27.8 mmol/L (21.0-32.0); CHLORIDE - SERUM 101 mmol/L (98-107); CREATININE - SERUM 0.8 mg/dL (0.6-1.3); GLUCOSE 190 mg/dL (74-106); POTASSIUM - SERUM 3.9 mmol/L (3.5-5.1); PROTEIN - SERUM 7.7 g/dL (6.4-8.2); SODIUM 139 mmol/L (136-145); UREA NITROGEN 12 mg/dL (7-18); eGFR NON AFRICAN AMERICAN > 90 mL/min (90-120)
[2017-02-03 00:08] LABS: CHOL - HDL RATIO 5.3 ratio (2.3-4.9); CHOLESTEROL, TOTAL 211 mg/dL (0-200); CKMB 0.4 U/L (0.0-3.6); CREATINE KINASE 99 UL (21-232); HDL CHOLESTEROL 40 mg/dL (32-96); LDL CHOLESTEROL 97 mg/dL (0-100); LDL-HDL RATIO 2.4 ratio (1.5-3.5); TRIGLYCERIDE 370 mg/dL (30-200)
[2017-02-03 00:12] LABS: TROPONIN-I < 0.017 ng/mL (0.000-0.060)
--- NOTE | 2017-02-03 02:00 | NUR ---
ADMIT TO ROOM 2103 FROM ER WITH DX CHEST PAIN. PT IS ALERT AND ORIENTED. HAS RECIEVED A TOTAL OF 8MG OF MORPHINE BEFORE COMING TO FLOOR. PT ABLE TO TRANSFER SELF TO BED. VS TAKEN. ADMISSION HISTORY AND ASSESSMENT COMPLETED. HOME MEDS REVIEWED. PT COOPERATIVE AND VOICING NO NEEDS.
[2017-02-03 02:09] VITALS: Ht 167.6 cm; Wt 122.3 kg
--- NOTE | 2017-02-03 03:40 | NUR ---
PT CALLED FOR NURSE AND SAYS NOONE IS DOING ANYTHING FOR HIM, THAT HE IS DYING WITH CHEST PAIN AND NO MEDS HAVE BEEN OFFERED. DISCUSSED WITH PATIENT THAT HE WAS FINE WHEN HE CAME TO ROOM AND VOICED NO PAIN NEEDS AT THAT TIME. PT DENIES THAT AND IS VERY ANGRY. INITIATED MORPHINE EMERGENCY DEPARTMENT PHYSICIAN AND GAVE PATIENT TEACHING ON USE OF EMERGENCY DEPARTMENT PHYSICIAN. GAVE MORPHINE 3MG BOLUS PER EMERGENCY DEPARTMENT PHYSICIAN FOR INITIAL PAIN THAT HE RATES 10/10. WILL MONITOR AND CPOC.
[2017-02-03 03:47] VITALS: BP 121/66; BP 163/102
[2017-02-03 06:12] LABS: CREATINE KINASE 69 UL (21-232)
[2017-02-03 06:13] LABS: TROPONIN-I < 0.017 ng/mL (0.000-0.060)
[2017-02-03 08:34] VITALS: BP 150/96
--- NOTE | 2017-02-03 08:57 | NUR ---
DC MORPHINE POLICE PATROL LIEUTENANT ORDERED. WASTED IN PYXIS REMAINING DOSAGE.
[2017-02-03 10:13] LABS: BASOPHILS 0.3 % (0-2); EOSINOPHILS 2.1 % (0-7); HEMATOCRIT 45.7 % (42.0-54.0); HEMOGLOBIN 14.8 g/dL (13.5-17.5); IMMATURE GRANULOCYTES 0.3 % (0-5); LYMPHOCYTES 32.6 % (15-50); MCH 31.8 pg (26.0-34.0); MCHC 32.4 g/dL (31.0-37.0); MEAN PLATELET VOLUME 10.4 fL (7.4-10.4); MONOCYTES 5.5 % (2-11); NEUTROPHILS 59.2 % (40-80); PLATELET COUNT 320 10x3/uL (130-400); RBC 4.66 10x6/uL (4.20-6.10); RDW 13.9 % (11.5-14.5); WBC 10.8 10x3/uL (4.8-10.8)
[2017-02-03 10:16] LABS: CALC OSMOLALITY 285 mosm/kg (275-300); CALCIUM 8.8 mg/dL (8.5-10.1); CARBON DIOXIDE 24.3 mmol/L (21.0-32.0); CHLORIDE - SERUM 103 mmol/L (98-107); CREATININE - SERUM 0.9 mg/dL (0.6-1.3); MCV 98.1 fL (80.0-100.0); POTASSIUM - SERUM 3.6 mmol/L (3.5-5.1); SODIUM 143 mmol/L (136-145); UREA NITROGEN 12 mg/dL (7-18); eGFR NON AFRICAN AMERICAN > 90 mL/min (90-120)
[2017-02-03 10:34] LABS: GLUCOSE 112 mg/dL (74-106)
[2017-02-03 12:01] LABS: CKMB 0.6 U/L (0.0-3.6); CREATINE KINASE 76 UL (21-232)
[2017-02-03 12:04] LABS: TROPONIN-I < 0.017 ng/mL (0.000-0.060)
--- NOTE | 2017-02-03 12:30 | NUR ---
PT BACK FROM EMERGENCY DEPARTMENT DIRECTOR. VS ARE WNL. PT LETHARGIC BUT ARROUSES EASILY. R GROIN SITE IS WNL DRESSING IS CDI. TELE PLACED BACK ON PT RUNNING SR 64. WILL CONT TO MONITOR
[2017-02-03] MEDS ORDERED: EFFIENT10 MG PO (13:21)
--- NOTE | 2017-02-03 13:25 | NUR ---
PT STILL LAYING FLAT, VS STILL WNL R GROIN SITE IS STILL WNL WILL CONT TO MONITOR
--- NOTE | 2017-02-03 13:51 | NUR ---
WAS IN ANOTHER ROOM TENDING TO PATIENT CARE. WALKED PAST PT ROOM AND HE HAD CALL LIGHT ON, WENT IN TO ANSWER IT AND PT IS CUSSING AT ME SAYING "I PRESSED MY CALL LIGHT 40 FUCKING TIMES I NEED TO PISS!" I EXPLAINED TO PT THAT I WAS IN ANOTHER ROOM WITH ANOTHER PT, PT WAS GIVEN URINAL TO URINATE IT. PT SAID "IM NOT PEEING IN THAT FUCKING THING I AM GETTING UP, MY ANXIETY IS TOO HIGH". I TOLD PT THAT HE CAN GET UP IN ABOUT 45 MINUTES, THAT HE NEEDS TO URINATE IN URINAL UNTIL THEN. IF HE GETS UP HE WILL BUST THE SEAL ON R GROIN AND WILL CHANCE BLEEDING. PT IS IRATE AND DEMANDED THAT I LEAVE THE ROOM ALONG WITH STUCCO MASON WITH ME SO HE COULD PEE.
--- NOTE | 2017-02-03 14:27 | NUR ---
PT 2 HOUR BED REST IS UP. SAT PT UP VS ARE STILL WNL. R GROIN IS STILL WNL. DC TELE AND RETURNED TO NIGHT SUPERVISOR. CALLED PT COUSIN WHO IS HIS RIDE. HE IS ON THE WAY
--- NOTE | 2017-02-03 14:50 | NUR ---
WENT OVER DC PAPERWORK WITH PT PT VERBALIZES UNDERSTANDING. DC PIV WITH CATH TIP INTACT. WAITING ON PT RIDE. PT HAS SAMPLES OF EFFIENT
--- NOTE | 2017-02-03 15:20 | NUR ---
PT RIDE IS HERE WHEELED OUT TO THE FRONT ENTRANCE VIA VOLUNTEER.
== END 2017-02-03 15:21 | disposition home or self-care (01) ==
LOC: D.ER 23:14 → OBSVTIME 02-03 00:57 → D.M2 02-03 00:57
PROVIDERS: Emergency Medicine; Internal Medicine Cardiovascular Disease; ADMIT Internal Medicine Interventional Cardiology
DX: R07.89 Other chest pain (principal); I25.10 Atherosclerotic heart disease of native coronary artery without angina pectoris; I10 Essential (primary) hypertension; Z95.5 Presence of coronary angioplasty implant and graft

== ENCOUNTER 2017-02-07 00:29 | Observation (INO) | payer MEDICARE ==
[~2017-02-07] VITALS: Ht 167.6 cm; Wt 118.8 kg
[~2017-02-07 00:29] MED LIST changes: +EFFIENT10 MG PO
[2017-02-07 01:03] LABS: HEMATOCRIT 42.3 % (42.0-54.0); HEMOGLOBIN 14.6 g/dL (13.5-17.5); LYMPHOCYTES 16.6 % (15-50); MCH 32.3 pg (26.0-34.0); MCHC 34.5 g/dL (31.0-37.0); MCV 93.6 fL (80.0-100.0); MEAN PLATELET VOLUME 9.4 fL (7.4-10.4); NEUTROPHILS 79.2 % (40-80); PLATELET COUNT 319 10x3/uL (130-400); RBC 4.52 10x6/uL (4.20-6.10); RDW 13.7 % (11.5-14.5); WBC 18.8 10x3/uL (4.8-10.8)
[2017-02-07 01:16] LABS: ALBUMIN 3.8 g/dL (3.4-5.0); ALKALINE PHOSPHATASE 109 U/L (46-116); ALT (SGPT) 43 U/L (10-68); CALC OSMOLALITY 291 mosm/kg (275-300); CALCIUM 9.1 mg/dL (8.5-10.1); CARBON DIOXIDE 26.5 mmol/L (21.0-32.0); CHLORIDE - SERUM 105 mmol/L (98-107); CREATININE - SERUM 1.3 mg/dL (0.6-1.3); POTASSIUM - SERUM 3.9 mmol/L (3.5-5.1); PROTEIN - SERUM 7.6 g/dL (6.4-8.2); SODIUM 141 mmol/L (136-145); UREA NITROGEN 17 mg/dL (7-18); eGFR NON AFRICAN AMERICAN 63 mL/min (90-120)
[2017-02-07 01:27] LABS: CHOL - HDL RATIO 4.4 ratio (2.3-4.9); CHOLESTEROL, TOTAL 198 mg/dL (0-200); CKMB 0.8 U/L (0.0-3.6); CREATINE KINASE 56 UL (21-232); HDL CHOLESTEROL 45 mg/dL (32-96); LDL CHOLESTEROL 94 mg/dL (0-100); LDL-HDL RATIO 2.1 ratio (1.5-3.5); TRIGLYCERIDE 299 mg/dL (30-200); TROPONIN-I < 0.017 ng/mL (0.000-0.060)
[2017-02-07 01:29] LABS: GLUCOSE 268 mg/dL (74-106)
[2017-02-07 03:51] VITALS: BP 172/97; BMI 42.3; BMI 45.3
[2017-02-07 03:53] LABS: HEMOGLOBIN A1C 6.5 % (4.8-6.0)
[2017-02-07 04:00] VITALS: BP 172/97
[2017-02-07] MEDS ORDERED: RANEXA500 MG PO (04:17)
[2017-02-07 08:13] VITALS: BP 150/107
[2017-02-07 11:58] LABS: HEMOGLOBIN A1C 6.8 % (4.8-6.0)
[2017-02-07 12:00] LABS: CALCIUM 8.4 mg/dL (8.5-10.1); CARBON DIOXIDE 28.4 mmol/L (21.0-32.0); CHLORIDE - SERUM 102 mmol/L (98-107); CREATINE KINASE 67 UL (21-232); POTASSIUM - SERUM 3.8 mmol/L (3.5-5.1); SODIUM 137 mmol/L (136-145); TROPONIN-I < 0.017 ng/mL (0.000-0.060); eGFR NON AFRICAN AMERICAN 86 mL/min (90-120)
[2017-02-07 12:05] LABS: CALC OSMOLALITY 281 mosm/kg (275-300); GLUCOSE 162 mg/dL (74-106); UREA NITROGEN 23 mg/dL (7-18)
[2017-02-07 13:24] VITALS: BP 158/101
[2017-02-07 17:06] VITALS: BP 184/104
[2017-02-07 19:45] VITALS: BP 156/90
[2017-02-08 01:51] VITALS: BP 166/101
[2017-02-08 05:48] VITALS: BP 152/90
[2017-02-08 08:19] VITALS: BP 133/76
[2017-02-08 11:52] VITALS: BP 127/67
[2017-02-08] MEDS ORDERED: PREDNISONE10 MG PO (12:09)
[2017-02-08 12:36] VITALS: Ht 167.6 cm; Wt 118.8 kg
--- NOTE | 2017-02-08 13:39 | CN ---
PATIENT NAME:CURTIS MADERA MEDICAL RECORD: [id number] : 72 LOCATION:[facility] D.2112 ADMIT DATE: 02/07/17 ACCOUNT: [id number] CONSULTING PHYSICIAN: OLIVA MONET MD REFERRING PHYSICIAN: MEDINA STEELE MD DATE OF CONSULTATION: 02/07/2017 HISTORY OF PRESENT ILLNESS: A 46-year-old gentleman with a history of coronary artery disease, status post intervention on the . He has had chest pain continued ever since then. He underwent diagnostic angiography to rule out subacute stent thrombosis. He has been without ECG changes since his intervention. As stated above, ECG has been normal. We are asked to see him concerning his cardiovascular status. PAST MEDICAL HISTORY: Includes: 1. History of chronic pain syndrome. 2. Hypothyroidism, on replacement. 3. Gastroesophageal reflux disease. 4. Hypertension. 5. Coronary artery disease as described above. ALLERGIES: PENICILLIN, SULFA, TRAMADOL. SOCIAL HISTORY: He smokes less than a pack a day. No set exercise program. He is able to take care of his ADLs. MEDICATIONS: Typically include: 1. Effient 10 mg every day. 2. Lisinopril 10/12.5 every day. 3. Ranexa 500 q.12 hours. 4. Aspirin 81 every day. 5. Requip 2 mg h.s. 6. Viibryd 40 every day. 7. Roxicodone 10 t.i.d. 8. Nexium 40 every day. 9. Synthroid 100 mcg every day. REVIEW OF SYSTEMS: The patient reports easy bruising but reports no swollen glands. The patient reports no fever, no night sweats, no significant weight gain, no significant weight loss. No significant exercise tolerance. The patient reports no dry eyes, no irritation, no vision change. Patient reports no difficulty hearing and no ear pain. Patient reports no frequent nose bleeds or nose and sinus problems. Patient reports on arm pain on exertion. No shortness of breath while lying down. No history of heart murmur. Patient reports no cough, no wheezing or coughing up blood. Patient reports no abdominal pain, no vomiting. Normal appetite. No diarrhea and not vomiting blood. No nausea and no constipation. Patient reports no incontinence. No difficulty urinating. No hematuria. No increased frequency. Patient reports no muscle aches. No weakness, no arthralgias, no back pain. No swelling of the extremities. Patient reports no abnormal mole, no jaundice, no rashes. Reports no loss of consciousness. No weakness and no numbness. No seizures, dizziness, or headaches. The patient reports no depression, no sleep disturbance, feeling safe in a relationship and no alcohol abuse. Patient reports on fatigue. Reports no runny nose or sinus pressure. No itching, no hives, and no frequent sneezing. CONSULT REPORT [id number] CURTIS MADERA PHYSICAL EXAMINATION: GENERAL: Pleasant gentleman in no acute distress, still complaining of a 9/10 chest pain. VITAL SIGNS: Blood pressure 150/107, pulse 81. HEENT: Normocephalic, atraumatic. NECK: No JVD or bruit. HEART: Regular. I do not hear a rub. LUNGS: Fair air excursion. ABDOMEN: Soft, nontender. EXTREMITIES: Pulses 2+ with no edema. DIAGNOSTIC DATA: ECG without acute change. IMPRESSION: Chest pain, noncardiac etiology. TRANSINT:[id number] Voice Confirmation ID: [id number] DOCUMENT ID: [id number] OLIVA MONET MD at 1339 CC: [id number] DICTATION DATE: 02/07/17 0927 LINING SETTER: 02/07/17 1026 ADM IN [place] [id number] [place] [address]
== END 2017-02-08 14:48 | disposition home or self-care (01) ==
LOC: D.ER 00:29 → D.M2 03:39 → OBSVTIME 03:39 → D.M2 02-08 14:48
PROVIDERS: Family Medicine; ADMIT Family Medicine
DX: R07.89 Other chest pain (principal); I25.10 Atherosclerotic heart disease of native coronary artery without angina pectoris; G89.4 Chronic pain syndrome; E03.9 Hypothyroidism, unspecified; K21.9 Gastro-esophageal reflux disease without esophagitis; I10 Essential (primary) hypertension; Z95.5 Presence of coronary angioplasty implant and graft; E78.1 Pure hyperglyceridemia; Z72.0 Tobacco use

== ENCOUNTER 2017-02-12 03:20 | Inpatient (IN) | payer MEDICARE ==
[~2017-02-12] VITALS: Ht 167.6 cm; Wt 120.6 kg
[~2017-02-12 03:20] MED LIST changes: +PREDNISONE10 MG PO; +RANEXA500 MG PO
[2017-02-12 03:41] LABS: BASOPHILS 0.2 % (0-2); EOSINOPHILS 1.6 % (0-7); HEMATOCRIT 47.5 % (42.0-54.0); HEMOGLOBIN 16.4 g/dL (13.5-17.5); IMMATURE GRANULOCYTES 0.6 % (0-5); LYMPHOCYTES 16.5 % (15-50); MCH 32.5 pg (26.0-34.0); MCHC 34.5 g/dL (31.0-37.0); MCV 94.1 fL (80.0-100.0); MONOCYTES 3.3 % (2-11); NEUTROPHILS 77.8 % (40-80); PLATELET COUNT 340 10x3/uL (130-400); RBC 5.05 10x6/uL (4.20-6.10); RDW 13.8 % (11.5-14.5); WBC 18.4 10x3/uL (4.8-10.8)
[2017-02-12 04:03] LABS: ALKALINE PHOSPHATASE 119 U/L (46-116); ALT (SGPT) 44 U/L (10-68); BILIRUBIN - TOTAL 0.16 mg/dL (0.2-1.3); CALC OSMOLALITY 285 mosm/kg (275-300); CALCIUM 9.2 mg/dL (8.5-10.1); CARBON DIOXIDE 26.4 mmol/L (21.0-32.0); CHLORIDE - SERUM 100 mmol/L (98-107); POTASSIUM - SERUM 4.1 mmol/L (3.5-5.1); PROTEIN - SERUM 7.6 g/dL (6.4-8.2); SODIUM 139 mmol/L (136-145); UREA NITROGEN 14 mg/dL (7-18); eGFR NON AFRICAN AMERICAN 86 mL/min (90-120)
[2017-02-12 04:14] LABS: CHOL - HDL RATIO 5.4 ratio (2.3-4.9); CHOLESTEROL, TOTAL 226 mg/dL (0-200); CKMB 0.3 U/L (0.0-3.6); CREATINE KINASE 47 UL (21-232); HDL CHOLESTEROL 42 mg/dL (32-96); TRIGLYCERIDE 652 mg/dL (30-200); TROPONIN-I < 0.017 ng/mL (0.000-0.060)
[2017-02-12 05:39] LABS: GLUCOSE 218 mg/dL (74-106)
--- NOTE | 2017-02-12 08:05 | NUR ---
0755-RECEIVED VIA WHEELCHAIR FROM THE ED WITH DX OF CHEST PAIN. O2 AT 2L PER NC. LEFT AC SEEN WITH SALINE LOCK. PLACED ON HEART MONITOR SHOWING SR, HR 76.COMPLAINTS OF CHEST PAIN 04/21. WANTS TO EAT BREAKFAST, TRAY WAS WITH HIM. WILL ADMIT PAST HIM EATING.
[2017-02-12 08:20] VITALS: BP 107/65
[2017-02-12] MEDS ORDERED: BAYER CHEWABLE81 MG PO (08:34)
[2017-02-12 08:49] VITALS: BP 107/65; BMI 42.3
--- NOTE | 2017-02-12 10:25 | NUR ---
RATES PAIN 9/10 TO CHEST AREA. DRINKING A COLA, TAKEN AWAY AND MADE NPO. ON PHONE.
[2017-02-12 11:51] VITALS: Ht 167.6 cm; Wt 120.6 kg
[2017-02-12 12:00] VITALS: BP 127/51; BP 136/74
--- NOTE | 2017-02-12 12:20 | NUR ---
PATIENT HAS BEEN MADE NPO.
--- NOTE | 2017-02-12 14:57 | NUR ---
CALLED AND TALKED TO LAURYN IN CT TO SEE HOW MUCH LONGER BEFORE TESTING IS DONE. SHE REPLIED THAT IT WOULD BE IN ABOUT "5 MIN".
--- NOTE | 2017-02-12 15:54 | NUR ---
HOME MEDICATIONS GIVEN SINCE PATIENT BACK FROM CTA. INFORMED PATIENT THAT THE DOCTOR WOULD LIKE TO TRY LEVSIN FOR HIS "CHEST DISCOMFORT" NEXT TIME.
[2017-02-12 16:24] VITALS: BP 127/85
--- NOTE | 2017-02-12 18:04 | NUR ---
PATIENT IS RESTING ON BACK, SLIGHTY TO RIGHT SIDE WITH EYES CLOSED. RESP ARE EVEN AND NON LABORED. APPEARS PAIN FREE. WILL CONTINUE TO MONITOR.
[2017-02-12 20:00] VITALS: BP 125/84
--- NOTE | 2017-02-12 20:07 | NUR ---
DR GURROLA SEEING PATIENT AND NEW ORDERS BEING WRITTEN FOR AN EGD IN AM, ULTRASOUND TONIGHT. REINALDO,NURSE ANESTHESIST NOW ON UNIT DOING PREOP CHECK FOR ANESTHESIA. PT C/O CHEST PAIN/NECK PAIN/BACK PAIN 05/22 AND IS CLUTCHING HIS CHEST AND HAS ASKED FOR PAIN MEDS. MEDICATED WITH MORPHINE 4MG SIVP +LEVSIN BY MOUTH AND HIS OTHER HS MEDS. WILL MONITOR AND IMPLEMENT NEW PLAN OF CARE PER DR GURROLA.
--- NOTE | 2017-02-12 23:50 | NUR ---
RADIOLOGY NEVER CAME FOR PT TO HAVE ULTRASOUND. PT C/O BEING HUNGRY AND NOW HE IS SUPPOSED TO BE NPO UNTIL PROCEDURE TOMORROW. PROVIDED ONE SANDWICH TRAY AND TOLD PATIENT SOON HE FINISHED THAT, NPO. PT VOICED UNDERSTANDING. CPOC.
[2017-02-13] VITALS: BP 139/77
--- NOTE | 2017-02-13 01:07 | NUR ---
MEDICATED FOR PAIN 03/21 WITH MORPHINE 4MG SIVP. PT NOW NPO FOR EGD IN AM. WILL MONITOR AND CALL LIGHT IN REACH.
[2017-02-13 04:00] VITALS: BP 143/85
--- NOTE | 2017-02-13 04:22 | NUR ---
PT'S WALLET WITH SANDERS/CREDIT CARDS GIVEN TO ER DECISION SCIENCE ANALYST TO BE LOCKED UP IN ER VAULT SINCE HE HAS SURGERY IN AM.
--- NOTE | 2017-02-13 05:29 | NUR ---
CONSENTS FOR EGD WITH TIVA SIGNED BY PATIENT.
[2017-02-13 06:11] LABS: BASOPHILS 0.1 % (0-2); EOSINOPHILS 0.6 % (0-7); HEMATOCRIT 43.9 % (42.0-54.0); HEMOGLOBIN 14.8 g/dL (13.5-17.5); IMMATURE GRANULOCYTES 0.5 % (0-5); LYMPHOCYTES 23.4 % (15-50); MCH 32.2 pg (26.0-34.0); MCHC 33.7 g/dL (31.0-37.0); MCV 95.4 fL (80.0-100.0); MEAN PLATELET VOLUME 9.9 fL (7.4-10.4); MONOCYTES 4.9 % (2-11); NEUTROPHILS 70.5 % (40-80); PLATELET COUNT 302 10x3/uL (130-400); RDW 14.2 % (11.5-14.5)
[2017-02-13 06:47] LABS: ALBUMIN 3.6 g/dL (3.4-5.0); ALKALINE PHOSPHATASE 86 U/L (46-116); ALT (SGPT) 39 U/L (10-68); AMYLASE - SERUM 33 U/L (25-115); CALCIUM 8.6 mg/dL (8.5-10.1); CARBON DIOXIDE 27.8 mmol/L (21.0-32.0); CHLORIDE - SERUM 99 mmol/L (98-107); CREATININE - SERUM 0.9 mg/dL (0.6-1.3); LIPASE 116 U/L (73-393); POTASSIUM - SERUM 3.7 mmol/L (3.5-5.1); PROTEIN - SERUM 7.3 g/dL (6.4-8.2); SODIUM 135 mmol/L (136-145); UREA NITROGEN 15 mg/dL (7-18); eGFR NON AFRICAN AMERICAN > 90 mL/min (90-120)
[2017-02-13 06:54] LABS: CALC OSMOLALITY 272 mosm/kg (275-300); GLUCOSE 135 mg/dL (74-106)
[2017-02-13 08:46] VITALS: BP 120/85
--- NOTE | 2017-02-13 08:51 | NUR ---
ASSESSMENT COMPLETED. TELEMERTY SHOWS SR. SL TO LEFT AC. DENIES ANY NEEDS. PRE OP FOR GI LAB. WILL MONITOR
--- NOTE | 2017-02-13 10:12 | NUR ---
BACK FROM GI LAB. V/S STABLE. TELEMERTY SHOWINGSR. STILL DROUSY
--- NOTE | 2017-02-13 11:27 | NUR ---
RESTING QUIETLY EYES CLOSED RESP UNLABORED NAD NOTED
[2017-02-13 12:12] VITALS: BP 121/73
--- NOTE | 2017-02-13 12:16 | NUR ---
PT STILL SEDATED. OPENS HIS EYES WHEN YOU SHAKE HIM THEN GOES BACK TO SLEEP. RESP REG AND NON LABORED. TELEMERTY SHOWS SR
--- NOTE | 2017-02-13 14:27 | NUR ---
EYES CLOSED. RESTING QUITLY WITH EYES CLOSE AND SNORING. TELEMERTY SHOWS SR. WILL MONITOR
[2017-02-13 16:23] VITALS: BP 130/99
--- NOTE | 2017-02-13 17:04 | OP ---
PATIENT NAME: CURTIS MADERA MEDICAL RECORD: [id number] :72 LOCATION:D. D.2128 ADMISSION DATE:02/12/17 SURGEON: ULYSSES GURROLA MD DATE OF OPERATION: 02/13/2017 PROCEDURE: EGD with biopsy. ATTENDING PHYSICIAN: Halina Steele MD. CLOTH SHEARER: Miguel Rivera MD. INDICATIONS: Mr. Madera is a pleasant 46-year-old gentleman with a history of coronary artery disease, who presented with recurrent chest pain. He had a coronary stent placed approximately 1 week ago, he did not post prescription for Plavix. He returned with recurrent chest pain several days later and repeat cardiac catheterization showed the stent to be widely patent. He was placed on Effient, which he has been compliant with. He had a CTA of the chest, which was negative for pulmonary embolus. His chest pain is retrosternal in nature radiates to his left neck and arm. Pain is constant in nature. Cardiac enzymes are negative. CT scan of the abdomen and pelvis in October 2016 was significant for gallstones. He presents for inpatient EGD to rule out GE reflux disease and esophageal spasm as a source of his chest pain. PREMEDICATIONS: Total IV anesthesia (ASA 4, propofol 150 mg, and Versed 2 mg). INSTRUMENT: Olympus video gastroscope. PROCEDURE AND FINDINGS: After receiving informed consent, Mr. Madera' posterior pharynx was anesthetized with Cetacaine spray, placed in left lateral decubitus position and sedated as per anesthesia. After achieving an adequate level of sedation, gastroscope was introduced per orally and advanced to the duodenum without difficulty. The esophageal mucosa was without erythema, ulcers, strictures, masses, appeared, normal down the GE junction. The mid and distal esophagus were biopsied to rule out microscopic evidence of GE reflux disease. A small sliding type hiatal hernia was noted. Gastric mucosa was notable for multiple small erosions in the prepyloric and antral region of the stomach and antral biopsies were obtained to rule out Helicobacter pylori. No lesions were seen in the body of the stomach, in the cardia or fundus. Pylorus was patent and competent. Duodenal mucosa was without erythema or ulcers, appeared normal through the second portion. Gastroscope was then withdrawn. Mr. Madera tolerated the procedure well, no immediate complications. ASSESSMENT: 1. Normal appearing esophageal mucosa, status post biopsy. 2. Small sliding type hiatal hernia. 3. Erosive gastritis. 4. History of cholelithiasis as evidence on CT scan of the abdomen and pelvis in October 2016. RECOMMENDATIONS: 1. Protonix 40 mg p.o. twice a day. 2. Right upper quadrant ultrasound. TRANSINT:[id number] Voice Confirmation ID: [id number] DOCUMENT ID: [id number] OPERATIVE REPORT [id number] CURTIS MADERA TERRI MD at 1704 CC: ABBIE RIVERA M.D., HALINA STEELE MD and EDUARD CHAUDHARI DO [id number] DICTATION DATE: 02/13/17904 LOGISTICS ADMINISTRATOR: 02/13/17 1100 ADM IN [place] [id number] [place] [address]
--- NOTE | 2017-02-13 19:15 | NUR ---
INITIAL ROUNDS MADE. PT SITTING UP IN BED WATCHING TV. REQUESTING PAIN MED. EXPLAINED TO HIM THAT HIS NEXT DOSES OF MORPHINE AND OXYIR ARE NOT DUE UNTIL 8:30. ASKED HIM WHICH HE PREFERRED, HE STATES "BOTH". INFORMED CAN ONLY GIVE ONE OR THE OTHER, HE REQUESTS THE MORPHINE WHEN DUE. PT THEN ASKS IF HE CAN AMBULATE DOWNSTAIRS.
[2017-02-13 20:00] VITALS: BP 126/88
--- NOTE | 2017-02-13 20:30 | NUR ---
MORPHINE 4MG GIVEN ORDERED PRN FOR PAIN.
--- NOTE | 2017-02-13 22:00 | NUR ---
PT CONT TO C/O PAIN, OXYIR GIVEN ORDERED.
--- NOTE | 2017-02-13 23:55 | NUR ---
PT AMBULATING HALLS.
[2017-02-14] VITALS: BP 115/84
[2017-02-14 04:00] VITALS: BP 135/89
[2017-02-14 05:50] LABS: BASOPHILS 0.2 % (0-2); EOSINOPHILS 0.7 % (0-7); HEMATOCRIT 46.1 % (42.0-54.0); HEMOGLOBIN 15.4 g/dL (13.5-17.5); IMMATURE GRANULOCYTES 0.6 % (0-5); LYMPHOCYTES 27.2 % (15-50); MCHC 33.4 g/dL (31.0-37.0); MCV 95.6 fL (80.0-100.0); MONOCYTES 4.8 % (2-11); NEUTROPHILS 66.5 % (40-80); PLATELET COUNT 327 10x3/uL (130-400); RBC 4.82 10x6/uL (4.20-6.10); RDW 13.9 % (11.5-14.5); WBC 14.3 10x3/uL (4.8-10.8)
[2017-02-14 06:27] LABS: ALBUMIN 3.9 g/dL (3.4-5.0); ALKALINE PHOSPHATASE 97 U/L (46-116); ALT (SGPT) 47 U/L (10-68); BILIRUBIN - TOTAL 0.39 mg/dL (0.2-1.3); CALC OSMOLALITY 279 mosm/kg (275-300); CALCIUM 8.8 mg/dL (8.5-10.1); CARBON DIOXIDE 29.1 mmol/L (21.0-32.0); CHLORIDE - SERUM 99 mmol/L (98-107); CREATININE - SERUM 0.9 mg/dL (0.6-1.3); GLUCOSE 149 mg/dL (74-106); POTASSIUM - SERUM 3.4 mmol/L (3.5-5.1); PROTEIN - SERUM 7.8 g/dL (6.4-8.2); SODIUM 138 mmol/L (136-145); UREA NITROGEN 15 mg/dL (7-18); eGFR NON AFRICAN AMERICAN > 90 mL/min (90-120)
[2017-02-14 08:00] VITALS: BP 142/103
--- NOTE | 2017-02-14 08:10 | NUR ---
ASSESSMENT DONE. DENIES NEEDS.
--- NOTE | 2017-02-14 08:48 | NUR ---
RESTS IN BED WITH CALL LIGHT IN REACH. FINA NEEDS AT THIS TIME. WILL CONT. TO MONITOR.
[2017-02-14 12:17] VITALS: BP 159/97
[2017-02-14 16:28] VITALS: BP 154/86
--- NOTE | 2017-02-14 17:53 | NUR ---
WITHOUT CHANGES OR DISTRESS NOTED AT THIS TIME. DENIES NEEDS.
--- NOTE | 2017-02-14 19:32 | NUR ---
ASSESSMENT COMPLETE, A&O, RESPERATIONS EVEN ON RA. IV TO RIGHT HAND SL, SITE CLEAN AND DRY. PT DENIES NEEDS AT THIS TIME, BED LOW, CL IN REACH.
--- NOTE | 2017-02-14 21:41 | NUR ---
HS MEDS GIVEN, MORPHINE 4 MG GIVEN FOR C/O CP.
[2017-02-14 21:46] VITALS: BP 131/93
--- NOTE | 2017-02-14 22:48 | NUR ---
PT UP IN SHOWER.
--- NOTE | 2017-02-14 23:31 | NUR ---
INFORMED PT THAT DR RG HAS PUT IN AN ORDER FOR A PIPIDA SCAN TO BE DONE TOMORROW AND THAT HE WILL NEED TO BE NPO AFTER MN, WHICH MEANS NOTHING TO EAT OR DRINK AND ALSO NO PAIN MEDS CAN BED GIVEN AFTER MN DUE TO THE WAY MEDICATIONS CAN EFFECT THE FUNCTION OF THE GALLBLADDER. PT STATED UNDERSTANDING.
--- NOTE | 2017-02-15 00:01 | NUR ---
MORPHINE 4 MG GIVEN EARLY DUE TO PT BEING UNABLE TO HAVE PAIN MEDS AFTER MN FOR PIPIDA SCAN IN AM.
[2017-02-15 01:37] VITALS: BP 156/99
[2017-02-15 05:32] VITALS: BP 123/90
[2017-02-15 05:49] LABS: BASOPHILS 0.2 % (0-2); EOSINOPHILS 1.4 % (0-7); HEMATOCRIT 44.5 % (42.0-54.0); HEMOGLOBIN 14.7 g/dL (13.5-17.5); IMMATURE GRANULOCYTES 0.7 % (0-5); MCH 31.7 pg (26.0-34.0); MCV 95.9 fL (80.0-100.0); MONOCYTES 6.5 % (2-11); NEUTROPHILS 57.2 % (40-80); PLATELET COUNT 332 10x3/uL (130-400); RBC 4.64 10x6/uL (4.20-6.10); WBC 13.5 10x3/uL (4.8-10.8)
[2017-02-15 06:20] LABS: ALBUMIN 3.6 g/dL (3.4-5.0); ALKALINE PHOSPHATASE 87 U/L (46-116); ALT (SGPT) 43 U/L (10-68); BILIRUBIN - TOTAL 0.48 mg/dL (0.2-1.3); CALC OSMOLALITY 275 mosm/kg (275-300); CALCIUM 8.6 mg/dL (8.5-10.1); CARBON DIOXIDE 30.1 mmol/L (21.0-32.0); CHLORIDE - SERUM 99 mmol/L (98-107); CREATININE - SERUM 0.9 mg/dL (0.6-1.3); GLUCOSE 118 mg/dL (74-106); PROTEIN - SERUM 7.3 g/dL (6.4-8.2); SODIUM 137 mmol/L (136-145); UREA NITROGEN 16 mg/dL (7-18); eGFR NON AFRICAN AMERICAN > 90 mL/min (90-120)
[2017-02-15 06:24] LABS: POTASSIUM - SERUM 3.4 mmol/L (3.5-5.1)
--- NOTE | 2017-02-15 07:00 | NUR ---
RECEIVED REPORT. ASSUMED CARE OF PATIENT. CALL LIGHT WITHIN REACH. PATIENT NPO FOR PIPIDA SCAN AND IS INQUIRING ABOUT TIME OF TEST BECAUSE HE IS WANTING HIS PAIN MEDICATION. EXACT TIME IS NOT KNOWN BUT INFORMED PATIENT THIS INTER FOLD ROLL CUTTER WOULD CHECK ABOUT THE STATUS OF HIS TEST. NO DISTRESS.
[2017-02-15 08:15] VITALS: BP 154/99
--- NOTE | 2017-02-15 09:00 | NUR ---
SPOKE WITH AND ALEJA FROM CARDIOLOGY IN REGARDS TO PATIENT WANTING TO CANCEL HIS PIPIDA SCAN BECAUSE HE CAN NOT HAVE HIS PAIN MEDICATION. INFORMED THAT HE NEEDS IT BUT IF HE CHOOSES NOT TO HAVE IT DONE, OKAY WITH . ALEJA AND INFORMED THIS CLASSIFIER OPERATOR THAT PATIENT WOULD NOT HAVE CARDIAC CLEARANCE FOR 6 MONTHS TO HAVE SURGERY. THANKED AND ALEJA.
--- NOTE | 2017-02-15 09:42 | NUR ---
PATIENT LEFT UNIT VIA WHEELCHAIR AT THIS TIME WITH GAURI FOR PIPIDA SCAN.
--- NOTE | 2017-02-15 11:03 | NUR ---
CALLED TO NUCLEAR BENITEZ THIS TIME TO ADMINISTER 2MG MORPHINE PER FOR PIPIDA SCAN BECAUSE GALLBLADDER PER GAURI IS NOT COOPERATING WITH THE ENSURE. 2MG ADMINISTERED VIA IV AT THIS TIME AFTER ORDER PLACED TO COMPUTER.
--- NOTE | 2017-02-15 11:54 | NUR ---
RETURENED FROM NUCLEAR MED AT 1135. MEDICATED FOR PAIN AT THIS TIME. NO DISTRESS. CALL LIGHT WITHIN REACH.
--- NOTE | 2017-02-15 13:25 | NUR ---
Nutrition follow-up: Pt NPO for PIPPIDA scan PO intake of regular diet has been ~75-100% of meals Labs reviewed Wt: 265# RDN following.
--- NOTE | 2017-02-15 15:00 | CN ---
PATIENT NAME:CURTIS MADERA MEDICAL RECORD: [id number] : 72 LOCATION:[facility] D.2128 ADMIT DATE: 02/14/17 ACCOUNT: [id number] CONSULTING PHYSICIAN: ARLETTE RG MD REFERRING PHYSICIAN: MEDINA STEELE MD DATE OF CONSULTATION: 02/14/2017 Surgical Consultation SURGEON: Arlette Rg MD. CHIEF COMPLAINT: Chest pain. HISTORY OF PRESENT ILLNESS: This is a 46-year-old male, who was admitted to the hospital with persistent left chest wall pain radiating to the left upper arm. The patient underwent a cardiac catheterization on 02/01/2017. He says while at home prior to admission, he had repeat episode of chest pain, numbness and tingling in the left arm, pain that radiated to his back and shoulders. He had nausea. No episodes of vomiting. Denies any history of abdominal pain. Denies any history of fever or chills, denies dysuria, hematuria, melena, hematochezia, or hematemesis. PAST MEDICAL HISTORY: Hypothyroidism, hypertension, coronary artery disease. PAST SURGICAL HISTORY: Total thyroidectomy, left shoulder repair, right ankle, cardiac catheterization with right coronary artery stent placement. ALLERGIES: PENICILLIN, TRAMADOL AND SULFA. MEDICATIONS: Please see electronic medical record for full list. REVIEW OF SYSTEMS: A 12-point review of systems was obtained, pertinent positives and negatives as per the history of present illness. PHYSICAL EXAMINATION: VITAL SIGNS: Temperature 97.9, heart rate 91, respirations 20, blood pressure 131/93, satting 96% on room air. GENERAL: This is a well-developed and well-nourished male, in mild distress. PSYCHIATRIC: He is alert and oriented times 3. EYES: Extraocular muscles are intact. EAR, NOSE AND THROAT: Mucous membranes are moist. NECK: Supple. CARDIOVASCULAR: Normal sinus rhythm. LUNGS: Clear to auscultation bilaterally. ABDOMEN: Soft, nontender and nondistended. SKIN: Warm, dry with normal turgor. EXTREMITIES: He is neurovascularly intact. No peripheral edema. NEUROLOGIC: GCS 15 with no focal deficit. IMAGING: Personally reviewed the gallbladder ultrasound as well as CT of the abdomen and pelvis which showed pericholecystic fluid, no gallbladder wall thickening. There is no dilatation in the portal system. Single gallstone in the gallbladder. CONSULT REPORT [id number] CURTIS MADERA IMPRESSION: This is a 46-year-old male with atypical chest pains, recent coronary artery stenting, nausea. PLAN: 1. Continue IV fluids. 2. N.p.o. at midnight. 3. Nuclear medicine HIDA scan. The patient is a high cardiac risk even if HIDA scan is abnormal for laparoscopic cholecystectomy in relationship to his stent placement. Recommend interval cholecystectomy if symptoms persist or HIDA scan is normal once he has received cardiac clearance in the future. We will follow as needed for surgical consultation. TRANSINT:[id number] Voice Confirmation ID: [id number] DOCUMENT ID: [id number] ARLETTE RG MD at 1500 CC: [id number] DICTATION DATE: 02/14/172215 ORDER PICKER: 02/15/17 0153 ADM IN [facility] [address] [id number]
--- NOTE | 2017-02-15 15:37 | NUR ---
Patient Name: CURTIS MADERA Admission Status: ER Accout number: [id number] Admission Date: 02-14-2017 : 1970 Admission Diagnosis: Attending: VELMA Current LOS: 1 Anticipated DC Date: Planned Disposition: Home Primary Insurance: MEDICARE A & B Discharge Planning Comments: * Is the patient Alert and Oriented? Yes 0 * How many steps to enter\exit or inside your home? 2 0 * PCP DR. MEAD PAOLI 0 * Pharmacy [facility] IN [place] 0 * Preadmission Environment Home with Family 0 * ADLs Independent 0 * Equipment Cane 0 * Other Equipment NO MEDICAL EQUIPMENT PROVIDER PREFERENCE 0 * List name and contact numbers for known caregivers / representatives who currently or will assist patient after discharge: ENMA MADERA, SPOUSE, 0 * Community resources currently utilized None 0 * Please name any agencies selected above. NONE 0 * Additional services required to return to the preadmission environment? No 0 * Can the patient safely return to the preadmission environment? Yes 0 * Has this patient been hospitalized within the prior 30 days at any hospital? Yes 0 CM MET WITH PT IN ROOM TO DISCUSS DISCHARGE PLANNING AND NEEDS. PT REPORTS LIVING AT HOME INDEPENDENTLY WITH SPOUSE. PT HAS A CANE AND NO MEDICAL EQUIPMENT PROVIDER PREFERENCE. PT HAS NO OUTSIDE SERVICES ASSISTING IN THE HOME. CM DISCUSSED AVAILABILITY OF HOME HEALTH, REHAB SERVICES AND MEDICAL EQUIPMENT. PT DENIES DISCHARGE NEEDS, REPORTS HIS SPOUSE WILL PICK HIM UP FOR DISCHARGE HOME. IMPORTANT MESSAGE FROM MEDICARE PROVIDED AND EXPLAINED. PT PLANS TO DISCHARGE HOME WITH SPOUSE, ANTICIPATES NO DISCHARGE NEEDS. CM TO FOLLOW AND ASSIST NEEDED. Wire Spooler: Ector Lobo
--- NOTE | 2017-02-15 15:50 | NUR ---
MEDICATED FOR PAIN AT THIS TIME. NO DISTRESS.
[2017-02-15 16:12] VITALS: BP 122/83
--- NOTE | 2017-02-15 17:30 | NUR ---
PATIENT AMBULATED OFF UNIT TO [employer] TO BUY A SNACK. NO DISTRESS. RETURNED TO ROOM AT THIS TIME.
--- NOTE | 2017-02-15 20:18 | NUR ---
HS MEDS GIVEN, MORPHINE 4 MG GIVEN AT PT REQUEST FOR C/O PAIN, RATES PAIN AT AN 8 ON PAIN SCALE. WILL CONT TO MONITOR.
[2017-02-15 22:09] VITALS: BP 146/99
[2017-02-16 00:45] VITALS: BP 136/89
--- NOTE | 2017-02-16 01:33 | NUR ---
RESTING WITH EYES CLOSED, RESPERATIONS EVEN, NO S/S DISTRESS NOTED.
[2017-02-16 05:13] VITALS: BP 146/100
--- NOTE | 2017-02-16 05:52 | NUR ---
OXYCODONE 10 MG GIVE AT PT REQUEST FOR C/O PAIN.
[2017-02-16 06:04] LABS: BASOPHILS 0.1 % (0-2); EOSINOPHILS 1.1 % (0-7); HEMOGLOBIN 14.9 g/dL (13.5-17.5); IMMATURE GRANULOCYTES 0.5 % (0-5); MCH 31.9 pg (26.0-34.0); MCHC 33.1 g/dL (31.0-37.0); MCV 96.4 fL (80.0-100.0); MONOCYTES 6.1 % (2-11); NEUTROPHILS 64.2 % (40-80); PLATELET COUNT 326 10x3/uL (130-400); RBC 4.67 10x6/uL (4.20-6.10); RDW 13.8 % (11.5-14.5); WBC 14.2 10x3/uL (4.8-10.8)
[2017-02-16 06:28] LABS: ALBUMIN 3.8 g/dL (3.4-5.0); ALKALINE PHOSPHATASE 95 U/L (46-116); ALT (SGPT) 45 U/L (10-68); CALC OSMOLALITY 278 mosm/kg (275-300); CALCIUM 8.7 mg/dL (8.5-10.1); CARBON DIOXIDE 27.6 mmol/L (21.0-32.0); CHLORIDE - SERUM 97 mmol/L (98-107); CREATININE - SERUM 1.1 mg/dL (0.6-1.3); POTASSIUM - SERUM 3.4 mmol/L (3.5-5.1); PROTEIN - SERUM 7.6 g/dL (6.4-8.2); SODIUM 135 mmol/L (136-145); UREA NITROGEN 17 mg/dL (7-18); eGFR NON AFRICAN AMERICAN 77 mL/min (90-120)
[2017-02-16 06:30] LABS: GLUCOSE 222 mg/dL (74-106)
--- NOTE | 2017-02-16 07:36 | NUR ---
PT SITTING UP IN BED WATCHING TV DENIES NEEDS WILL CONT TO MONITOR
[2017-02-16 07:38] LABS: MAGNESIUM - SERUM 2.3 mg/dL (1.8-2.4); PHOSPHOROUS 3.7 mg/dL (2.5-4.9)
--- NOTE | 2017-02-16 08:10 | NUR ---
PT REPORTS PAIN 8/10 IN SHOULDERS, BACK , AND NECK. PT REQUESTS MORPHINE AT THIS TIME. 4MG MORPHINE GIVEN SLOW IVP. SALINE LOCK FLUSHES EASILY. PT DENIES FURTHER NEEDS AT THIS TIME.
[2017-02-16 08:19] VITALS: BP 133/90
--- NOTE | 2017-02-16 09:35 | NUR ---
PT IN LEFT TILT POSITION RESTING WITH EYES CLOSED. AROUSES UPON ENTERING ROOM. PT STATES, " THE PAIN IS LIKE A 7 NOW, BUT IT IS BETTER." DIET COKE PROVIDED. PT DENIES FURTHER NEEDS AT THIS TIME.
--- NOTE | 2017-02-16 11:45 | NUR ---
PT SITTING UP IN BED STILL C/O PAIN 8/10 IN CHEST AREA. NOT TIME FOR PAIN MEDS YET. LET PT KNOW AND WROTE TIMES OF NEXT DUE PAIN MED ON THE BOARD. GIVEN PT CARAFATE ORDERED. PT DENIES ANY OTHER NEEDS AT THIS TIME WILL CONT TO MONITOR
[2017-02-16 12:18] VITALS: BP 150/94
[2017-02-16] MEDS ORDERED: GEMFIBROZIL600 MG PO (12:25)
[2017-02-16] MEDS ORDERED: LEVSIN/ANASP0.125 MG PO (12:25)
[2017-02-16] MEDS ORDERED: CARAFATE1 G/10 ML PO (12:26)
--- NOTE | 2017-02-16 12:52 | NUR ---
PT RATES PAIN 8/10 AND DESCRIBES GENERALIZED. REQUESTS MORPHINE. MORPHINE 4MG GIVEN SLOW IVP. PT IN HIGH FOWLERS POSITION. PT DENIES FURTHER NEEDS AT THIS TIME.
[2017-02-16] MEDS ORDERED: HYDROCODON-ACE1 EAC7 PO (14:39)
--- NOTE | 2017-02-16 15:19 | NUR ---
WENT OVER DC PAPERWORK WITH PT PT VERBALIZES UNDERSTANDING. DC PIV WITH CATH TIP INTACT. DC TELE AND RETURNED TO MARINE SAFETY OFFICER. GIVEN PT WRITTEN SCRIPT FOR [place]. PT REFUSED WHEELCHAIR AND WALKED DOWN WITH FAMILY TO FRONT ENTRANCE.
== END 2017-02-16 15:21 | disposition home or self-care (01) | DRG 446 ==
LOC: D.ER 03:20 → D.M2 07:19 → OBSVTIME 07:19 → D.M2 02-14 15:34
PROVIDERS: Emergency Medicine; Internal Medicine Gastroenterology; ADMIT Family Medicine
PROC: 0DB58ZX Excision of Esophagus, Via Natural or Artificial Opening Endoscopic, Diagnostic (ICD-10-PCS; principal; 2017-02-13 08:32)
DX: K81.1 Chronic cholecystitis (principal); K29.00 Acute gastritis without bleeding; K44.9 Diaphragmatic hernia without obstruction or gangrene; I10 Essential (primary) hypertension; E03.9 Hypothyroidism, unspecified; I25.10 Atherosclerotic heart disease of native coronary artery without angina pectoris; K76.0 Fatty (change of) liver, not elsewhere classified; E78.1 Pure hyperglyceridemia; Z87.891 Personal history of nicotine dependence

== ENCOUNTER 2017-02-22 13:35 | Emergency (ER) | payer MEDICARE ==
[2017-02-12 11:51] VITALS: BMI 42.3
[~2017-02-22 13:35] MED LIST changes: +BAYER CHEWABLE81 MG PO; +CARAFATE1 G/10 ML PO; +GEMFIBROZIL600 MG PO; +HYDROCODON-ACE1 EAC7 PO; +LEVSIN/ANASP0.125 MG PO
[2017-02-22 14:07] LABS: BASOPHILS 0.2 % (0-2); EOSINOPHILS 0.5 % (0-7); HEMATOCRIT 44.8 % (42.0-54.0); HEMOGLOBIN 15.2 g/dL (13.5-17.5); IMMATURE GRANULOCYTES 0.6 % (0-5); LYMPHOCYTES 12.9 % (15-50); MCH 32.3 pg (26.0-34.0); MCHC 33.9 g/dL (31.0-37.0); MCV 95.3 fL (80.0-100.0); MONOCYTES 3.9 % (2-11); NEUTROPHILS 81.9 % (40-80); PLATELET COUNT 338 10x3/uL (130-400); RDW 14.2 % (11.5-14.5); WBC 17.4 10x3/uL (4.8-10.8)
[2017-02-22 14:21] LABS: ALBUMIN 4.1 g/dL (3.4-5.0); ALKALINE PHOSPHATASE 99 U/L (46-116); ALT (SGPT) 39 U/L (10-68); BILIRUBIN - TOTAL 0.35 mg/dL (0.2-1.3); CALC OSMOLALITY 284 mosm/kg (275-300); CALCIUM 9.1 mg/dL (8.5-10.1); CHLORIDE - SERUM 100 mmol/L (98-107); CREATININE - SERUM 0.9 mg/dL (0.6-1.3); GLUCOSE 234 mg/dL (74-106); POTASSIUM - SERUM 4.1 mmol/L (3.5-5.1); PROTEIN - SERUM 7.4 g/dL (6.4-8.2); SODIUM 137 mmol/L (136-145); UREA NITROGEN 21 mg/dL (7-18); eGFR NON AFRICAN AMERICAN > 90 mL/min (90-120)
[2017-02-22 14:31] LABS: CHOL - HDL RATIO 3.7 ratio (2.3-4.9); CHOLESTEROL, TOTAL 179 mg/dL (0-200); CKMB 0.1 U/L (0.0-3.6); CREATINE KINASE 60 UL (21-232); HDL CHOLESTEROL 49 mg/dL (32-96); LDL CHOLESTEROL 90 mg/dL (0-100); LDL-HDL RATIO 1.8 ratio (1.5-3.5); TRIGLYCERIDE 202 mg/dL (30-200)
[2017-02-22 14:33] LABS: TROPONIN-I < 0.017 ng/mL (0.000-0.060)
== END 2017-02-22 18:31 | disposition home or self-care (01) ==
LOC: D.ER 13:35
PROVIDERS: Emergency Medicine
DX: R07.9 Chest pain, unspecified (principal); K21.9 Gastro-esophageal reflux disease without esophagitis; I10 Essential (primary) hypertension

== ENCOUNTER 2017-02-24 23:30 | Emergency (ER) | payer MEDICARE ==
[2017-02-12 11:51] VITALS: BMI 42.3
== END 2017-02-25 02:00 | disposition home or self-care (01) ==
LOC: D.ER 23:30
DX: R07.9 Chest pain, unspecified (principal); R11.2 Nausea with vomiting, unspecified; R10.9 Unspecified abdominal pain; I25.10 Atherosclerotic heart disease of native coronary artery without angina pectoris; I10 Essential (primary) hypertension; K21.9 Gastro-esophageal reflux disease without esophagitis

== ENCOUNTER 2017-08-09 21:47 | Observation (INO) | payer MEDICARE ==
[~2017-08-09] VITALS: Ht 167.6 cm; Wt 122.4 kg
--- NOTE | ~2017-08-09 | HEMODYNAMI ---
PATIENT:CURTIS MADERA MEDICAL RECORD: [id number] : 72 LOCATION:[address] ADMISSION DATE: 08/09/17 Generatedon:08/10/201714:47 Patient name: CURTIS MADERA Patient #: [id number] SSN: : Date of study: 08/10/2017 Page: Of Hemodynamic Procedure Report Patient Data Patient Demographics Procedure consent was obtained First Name: CURTIS Gender: Male Last Name: SANTY : 1970 [facility] Initial: E Age: 47 year(s) Patient #: [id number] Race: Unknown Additional ID: [id number] Contact details Address: [address] [place] [address] DRIVE State: [place] City: [place] Zip code: [address] Past Medical History Allergies Allergen Reaction Date Comments Reported Sulfa drugs 01/31/2017 Penicillins 01/31/2017 Other allergy 01/31/2017 TRAMADOL Other allergy 08/10/2017 Pcn, Sulfa, Tramadol, Lyrica Admission Admission Data Admission Date: 08/09/2017 Admission Time: 23:21 Room #: D.2126 Lab Results Lab Result Date: 08/10/2017 Lab Result Time: 0:00 Biochemistry Name Units Result Min Max BUN mg/dl 15 --(--*-)-- 7 18 Creatinine mg/dl 0.9 --(-*--)-- 0.6 1.3 CBC Name Units Result Min Max Hemoglobin g/dl 14.8 --(-*--)-- 13.5 17.5 Procedure Procedure Types Cath Procedure Diagnostic Procedure LHC LHC w/Coronaries Miscellaneous Procedures Moderate Sedation up to 30 minutes Procedure Description Procedure Date Procedure Date: 08/10/2017 Procedure Start Time: 14:27 Procedure End Time: 14:44 Procedure Staff Name Function Rinku Davison MD Performing Physician Daisha Galindo RT Monitor Allyson Iyer RT Scrub Costa Cortes RN Nurse Procedure Data Cath Procedure Fluoroscopy Diagnostic fluoroscopy Total fluoroscopy Time: 6.8 time: 6.8 min min Diagnostic fluoroscopy Total fluoroscopy dose: dose: 1616 mGy 1616 mGy Contrast Material Contrast Material Type Amount (ml) Isovue 300 150 Entry Location Entry Primary Successful Side Size Upsize Upsize Entry Closure Baca ccessful Closure Location (Fr) 1 (Fr) 2 (Fr) Remarks Device Remarks Radial Right 6 Fr Mechanical artery Short Compression Estimated blood loss: 5 ml Diagnostic catheters Device Type Used For End Catheter Placement Diagnostic Terumo 5Fr Multi-vessel [place] 110cm catheter Angiography Diagnostic Terumo Multi-vessel Optitorque 5Fr [place] 4.5 Angiography catheter Diagnostic Infinity 5Fr Right Coronary AR MOD Catheter Angiography Procedure Complications No complications Procedure Medications Medication Administration Route Dosage Oxygen NC 2 l/min Heparin Flush Bag added to field 2 bags (1000units/500ml NS) 0.9% NaCl I.V. 100 ml/hr Radial Cocktail added to field 1 syringe (Verapomil 2mg/Nitro 400mcg/Heparin 1500units) Fentanyl I.V. 50 mcg Versed I.V. 1 mg Fentanyl I.V. 50 mcg Versed I.V. 1 mg Radial Cocktail I.A. 1 syringe (Verapomil 2mg/Nitro 400mcg/Heparin 1500units) Hemodynamics Rest HGB: 14.8 (g/dl) Heart Rate: 81 (bpm) Pressure Samples Time Site Value (mmHg) Purpose Heart Use Rate(bpm) 14:31 LV 114/12,15 Snapshot 79 14:31 AO 112/75(93) Pullback 78 14:31 LV 108/11,22 Pullback 78 Gradients Valve Time Site 1 Site 2 Mean SEP/DFP Peak To Heart Use (mmHg) (sec/min) Peak Rate (mmHg) (bpm) Aortic 14:31 LV AO 0 5 0 78 108/11,22 112/75(93) Calculations Valve P-P Mean Valve Index Valve Source Name Gradient Area Flow (cm2) Aortic 0 0 0 0 Snapshots Pre Cath Intra NCS Post Cath Vital Signs Time Heart Resp SPO2 etCO2 NIBP (mmHg) Rhythm Pain Sedation Rate (ipm) (%) (mmHg) Status Level (bpm) 14:13:46 73 18 94 0 125/78(98) NSR 0 (11) 10(A) , No pain 14:18:02 80 19 83 0 110/77(93) NSR 0 (11) 10(A) , No pain 14:22:14 82 18 92 0 120/74(92) NSR 0 (11) 10(A) , No pain 14:26:26 76 18 94 41.3 132/82(94) NSR 0 (11) 10(A) , No pain 14:30:38 80 17 93 42.8 116/69(101) NSR 0 (11) 10(A) , No pain 14:34:50 75 17 90 47.3 130/75(117) NSR 0 (11) 10(A) , No pain 14:39:06 72 16 97 46.5 139/71(101) NSR 0 (11) 10(A) , No pain 14:43:16 69 19 95 33 126/86(108) NSR 0 (11) 10(A) , No pain 14:45:10 70 15 96 44.3 138/75(103) NSR 0 (11) 10(A) , No pain Medications Time Medication Route Dose Verified Delivered Reason Notes Effectiveness by by 14:15:18 Oxygen NC 2 l/min Rinku Skelton Per [facility] Curtis Cortes RN physician 14:15:27 Heparin Flush added 2 bags Rinku Skelton used for Bag to [facility] Curtis Cortes RN procedure (1000units/500ml field WALLACE NS) 14:18:38 0.9% NaCl I.V. 100 Rinku Skelton ml/hr [facility] Curtis Cortes RN, MD 14:18:48 Radial Cocktail added 1 Rinku Skelton used for (Verapomil to syringe [facility] Curtis Cortes RN procedure 2mg/Nitro field WALLACE 400mcg/Heparin 1500units) 14:19:51 Fentanyl I.V. 50 mcg Rinku Skelton for sedation [facility] Curtis Cortes RN, MD 14:19:59 Versed I.V. 1 mg Rinku Skelton for sedation [facility] Curtis Cortes RN, MD 14:30:19 Fentanyl I.V. 50 mcg Rinku Skelton for sedation [facility] Curtis Cortes RN, MD 14:30:24 Versed I.V. 1 mg Rinku Skelton for sedation [facility] Curtis Cortes RN, MD 14:30:42 Radial Cocktail I.A. 1 Rinku Dobbs for (Verapomil syringe [place] Davison vasodilation 2mg/Akanksha WALLACE MD 400mcg/Heparin 1500units) Procedure Log Time Note 13:56:28 Allyson Iyer RT(R) sent for patient. Start room use. 14:06:29 Time tracking: Regular hours 14:06:35 Plan of Care:Hemodynamics will remain stable., Cardiac rhythm will remain stable., Comfort level will be maintained., Respiratory function will remain adequate., Patient/ family verbilizes understanding of procedure., Procedure tolerated without complication., Recovers from procedure without complications.. 14:06:40 Patient received from Med II to [facility] 2 Alert and oriented. Tansferred to table in Supine position. 14:06:42 Warm blankets applied, and ledy hugger turned on for patient comfort. 14:06:42 Correct patient and procedure confirmed by team. 14:06:43 Signed procedure consent form obtained from patient. 14:06:44 ECG and BP/O2 sat monitors applied to patient. 14:12:39 Vital chart was started 14:15:18 Oxygen 2 l/min NC was administered by Costa Cortes RN; Per physician; 14:15:27 Heparin Flush Bag (1000units/500ml NS) 2 bags added to field was administered by Costa Cortes RN; used for procedure; 14:16:24 Baseline sample Acquired. 14:16:28 Rhythm: sinus rhythm 14:16:30 Full Disclosure recording started 14:16:33 H&P Date Dictated: 08/10/2017 New H&P dictated by physician.. 14:16:35 Pre-procedure instructions explained to patient. 14:16:35 Pre-op teaching completed and patient verbalized understanding. 14:16:37 Family in waiting room. 14:16:39 Patient NPO since Midnight. 14:17:06 Patient allergic to Other allergyPcn, Sulfa, Tramadol, Lyrica 14:17:12 Is the patient allergic to Iodine/contrast media? No. 14:17:13 Was the patient premedicated? No 14:17:15 Is patient on blood thinner?No 14:17:16 Patient diabetic? Yes. 14:17:17 If diabetic: On Metformin? No 14:17:22 Previous problem with sedation/anesthesia? No ? 14:17:24 Snore? Yes 14:17:25 Sleep apnea? Yes 14:17:26 Deviated septum? No 14:17:27 Opens mouth fully? Yes 14:17:28 Sticks out tongue? Yes 14:17:30 Airway obstruction? No ? 14:17:32 Dentures? No ? 14:17:36 Pre procedure: right dorsailis pedis pulse 2+ Normal; easily identifiable; not easily obliterated 14:17:39 Pre procedure: left dorsailis pedis pulse 2+ Normal; easily identifiable; not easily obliterated 14:17:42 Patient pain scale 0/10 ?. 14:17:55 IV patent on arrival in left forearm with 0.9% NaCl at [facility]. 14:18:38 0.9% NaCl 100 ml/hr I.V. was administered by Costa Cortes RN; ; 14:18:48 Radial Cocktail (Verapomil 2mg/Nitro 400mcg/Heparin 1500units) 1 syringe added to field was administered by Costa Cortes RN; used for procedure; 14:18:49 Lab Result : BUN 15 mg/dl 14:18:49 Lab Result : Creatinine 0.9 mg/dl 14:18:49 Lab Result : Hemoglobin 14.8 g/dl 14:18:53 Lab results completed and on chart. 14:18:57 Right Radial & Right Groin area was prepped with chlora-prep and draped in sterile fashion 14:19:10 Alarms reviewed by R. N. 14:19:11 Sharps counted by scrub and verified by R.N. 14:19:14 Physician arrived 14:19:14 --------ALL STOP TIME OUT------ 14:19:15 Final Timeout: patient, procedure, and site verified with staff and physician. All members of the team are in agreement. 14:19:17 Right Radial & Right Groin site verified by team. 14:19:20 Physical assessment completed. ASA score P 2 - A patient with mild systemic disease as per Rinku Davison MD. 14:19:25 Sedation plan: IV Moderate Sedation Medication:Versed, Fentanyl 14:19:27 Use device set Radial Dx 14:19:28 ACIST: Syringe (36188) opened to sterile field. 14:19:29 Medline Cath Pack ([id number]) opened to sterile field. 14:19:29 Bag Decanter (2002S) opened to sterile field. 14:19:30 Terumo 6Fr Slender Glidesheath opened to sterile field. 14:19:30 St Tito 260cm J .035 wire opened to sterile field. 14:19:30 ACIST: Hand Control (08278) opened to sterile field. 14:19:31 ACIST: Manifold (84968) opened to sterile field. 14:19:31 Tegaderm 4 x 4 (1626W) opened to sterile field. 14:19:31 MBrace Wrist Support (140-0250-00) opened to sterile field. 14:19:51 Fentanyl 50 mcg I.V. was administered by Costa Cortes RN; for sedation; 14:19:59 Versed 1 mg I.V. was administered by Costa Cortes RN; for sedation; 14:27:13 Procedure started. 14:27:23 Local anesthetic to right radial artery with Lidocaine 2% by Rinku Davison MD.INITIAL ACCESS ONLY 14:29:13 A 6 Fr Short sheath was inserted into the Right Radial artery 14:29:16 Zero performed for pressure channel P1 14:29:40 A Diagnostic Terumo 5Fr [place] 110cm catheter was advanced over the wire and used for Multi-vessel Angiography. 14:30:19 Fentanyl 50 mcg I.V. was administered by Costa Cortes RN; for sedation; 14:30:24 Versed 1 mg I.V. was administered by Costa Cortes RN; for sedation; 14:30:42 Radial Cocktail (Verapomil 2mg/Nitro 400mcg/Heparin 1500units) 1 syringe I.A. was administered by Rinku Davison MD; for vasodilation; 14:31:06 LV hemodynamics recorded. 14:31:13 LV gram done using ZENDEJAS 14:31:16 Injector settings: Ml/sec: 5, Volume: 15, 14:31:25 EF : 55 % 14:33:10 LCA angiography performed. 14:33:12 Injector settings: Ml/sec: 3, Volume: 6, 14:34:46 Catheter removed. 14:35:01 A Diagnostic Terumo Optitorque 5Fr [place] 4.5 catheter was advanced over the wire and used for Multi-vessel Angiography. 14:39:37 Catheter removed. 14:39:56 A Diagnostic Infinity 5Fr AR MOD Catheter was advanced over the wire and used for Right Coronary Angiography. 14:41:53 RCA angiography performed. 14:41:56 Injector settings: Ml/sec: 3, Volume: 6, 14:42:24 Catheter removed. 14:42:31 Terumo TR Band Large opened to sterile field. 14:42:43 Sheath removed intact; hemostasis achieved with Mechanical Compression to the Right Radial artery. 14:42:46 Procedure ended.(Physican Out) 14:42:55 Fluoroscopy time 06.80 minutes. 14:43:00 Flurop Dose total: 1616 14:43:00 Fluoroscopy dose: 1616 mGy 14:43:11 Contrast amount:Isovue 300 150ml. 14:43:13 Sharps counted by scrub and verified by R.N. 14:43:14 Insertion/operative site no bleeding no hematoma. 14:43:18 TR band inflated with 10cc of air. 14:43:23 Post right radial artery:stable 14:43:25 Post Procedure Pulses reassessed and unchanged 14:43:28 Post procedure rhythm: unchanged. 14:43:30 Estimated blood loss: 5 ml 14:43:33 Post procedure instruction explained to patient.Patient verbalizes understanding. 14:43:33 Patient needs reinforcement of post procedure teaching. 14:43:47 Procedure type changed to Cath procedure, Diagnostic procedure, LHC, LHC w/Coronaries, Miscellaneous Procedures, Moderate Sedation up to 30 minutes 14:43:48 Procedure and supply charges have been captured, reviewed, submitted and are correct. 14:43:52 Procedure Complication : No complications 14:43:55 Vital chart was stopped 14:43:55 See physician's report for complete and final results. 14:44:03 Report given to [facility]. 14:44:05 Patient transfered to [facility] with Stretcher. 14:44:07 Procedure ended. 14:44:07 Full Disclosure recording stopped 14:44:10 End room use (Document Last) Device Usage Item Name Manufacture Quantity Catalog Hospital Part Current Minim al Lot# / Number Charge Number Stock Stock Serial# Code ACIST: Acist 1 84913 765890 599513 153218 20 Syringe [place] (50026) Mediamorph Inc Medline Cath Cardinal 1 [id number] 580148 61124 752503 5 Pack Health ([id number]) Bag Decanter Microtek 1 134058 94909 612823 5 () Medical Inc. Terumo 6Fr Terumo 1 [id number] 777910 396387 115548 [address] Tito [address] Tito 1 722882 657085 771318 508932 30 J .035 wire ACIST: Hand Acist 1 97694 150085 112700 651814 5 Control Medical (80653) Systems Inc ACIST: Acist 1 35131 733404 402770 191244 5 Manifold Medical (67502) Systems Inc Tegaderm 4 x 3M 1 1626W 160009 041402 594899 5 4 (1626W) MBrace Wrist Advanced 1 140-0250-00 092107 12964 610654 5 Support Vascular (140-0250-00) Dynamics Diagnostic Terumo 1 40-5013 710684 576374 414383 5 Terumo 5Fr [place] 110cm catheter Diagnostic Terumo 1 40-5012 712140 041247 895021 5 Terumo Optitorque 5Fr [place] 4.5 catheter Diagnostic Cardinal 1 [id number] 475280 966144 760434 15 Infinity 5Fr Health AR MOD Catheter Terumo TR Terumo 1 SUN62-FQI 907375 385227 109225 40 Band Large Signature Audit [place] Stage Time Signature Unsigned Intra-Procedure 08/10/2017 Daisha Galindo 2:47:51 PM RT(R) Signatures Monitor : Daisha Galindo RT Signature : Date : Time : [facility] [address] [place] [address]
[2017-08-09 22:31] LABS: BASOPHILS 0.2 % (0-2); HEMATOCRIT 45.6 % (42.0-54.0); HEMOGLOBIN 14.8 g/dL (13.5-17.5); IMMATURE GRANULOCYTES 0.3 % (0-5); LYMPHOCYTES 25.2 % (15-50); MCH 30.3 pg (26.0-34.0); MCHC 32.5 g/dL (31.0-37.0); MCV 93.3 fL (80.0-100.0); MEAN PLATELET VOLUME 9.4 fL (7.4-10.4); MONOCYTES 5.6 % (2-11); NEUTROPHILS 66.7 % (40-80); PLATELET COUNT 291 10x3/uL (130-400); RBC 4.89 10x6/uL (4.20-6.10); RDW 15.1 % (11.5-14.5); WBC 11.1 10x3/uL (4.8-10.8)
[2017-08-09 22:48] LABS: ALBUMIN 3.6 g/dL (3.4-5.0); ALKALINE PHOSPHATASE 118 U/L (46-116); ALT (SGPT) 65 U/L (10-68); BILIRUBIN - TOTAL 0.19 mg/dL (0.2-1.3); CALC OSMOLALITY 280 mosm/kg (275-300); CALCIUM 8.5 mg/dL (8.5-10.1); CARBON DIOXIDE 26.9 mmol/L (21.0-32.0); CHLORIDE - SERUM 100 mmol/L (98-107); CREATININE - SERUM 0.9 mg/dL (0.6-1.3); GLUCOSE 208 mg/dL (74-106); POTASSIUM - SERUM 3.6 mmol/L (3.5-5.1); PROTEIN - SERUM 7.9 g/dL (6.4-8.2); SODIUM 137 mmol/L (136-145); UREA NITROGEN 15 mg/dL (7-18); eGFR NON AFRICAN AMERICAN > 90 mL/min (90-120)
[2017-08-09 23:11] LABS: CHOL - HDL RATIO 4.8 ratio (2.3-4.9); CHOLESTEROL, TOTAL 193 mg/dL (0-200); CKMB 0.9 U/L (0.0-3.6); CREATINE KINASE 111 UL (21-232); HDL CHOLESTEROL 40 mg/dL (32-96); LDL CHOLESTEROL 79 mg/dL (0-100); PRO BNP 22 pg/mL (0-125); TRIGLYCERIDE 373 mg/dL (30-200); TROPONIN-I < 0.017 ng/mL (0.000-0.060)
--- NOTE | 2017-08-10 01:33 | NUR ---
PATIENT HAS JUST BEEN ADMITTED TO THE FLOOR FROM THE ER WITH CHEST PAIN. REPORTS PAIN AT A 9. WILL ADMINISTER PAIN MEDICATION PER ORDERS. BED LOW, CALL LIGHT IN REACH.
--- NOTE | 2017-08-10 04:05 | NUR ---
PT LYING IN BED, AWAKE, LOOKING AT TV, RESTING COMFORTABLY. NO NEEDS, CONTINUE TO MONITOR CLOSELY.
[2017-08-10 04:29] VITALS: BP 126/71
[2017-08-10 05:38] VITALS: BP 126/71; Ht 167.6 cm; Wt 122.4 kg
[2017-08-10 08:23] VITALS: BP 110/73
[2017-08-10 10:49] LABS: BASOPHILS 0.2 % (0-2); EOSINOPHILS 2.3 % (0-7); HEMATOCRIT 41.1 % (42.0-54.0); HEMOGLOBIN 13.3 g/dL (13.5-17.5); IMMATURE GRANULOCYTES 0.3 % (0-5); LYMPHOCYTES 22.5 % (15-50); MCH 30.2 pg (26.0-34.0); MCHC 32.4 g/dL (31.0-37.0); MCV 93.4 fL (80.0-100.0); MEAN PLATELET VOLUME 9.3 fL (7.4-10.4); MONOCYTES 4.7 % (2-11); PLATELET COUNT 252 10x3/uL (130-400); RDW 15.1 % (11.5-14.5); WBC 10.4 10x3/uL (4.8-10.8)
--- NOTE | 2017-08-10 11:04 | NUR ---
2MG OF MORPHINE GIVEN FOR PAIN LEVEL OF 8/10. LARISSA SALGADO AT BEDSIDE TO ASSESS PT. PT DENIES ANY OTHER NEEDS AT THIS TIME. CALL LIGHT IN REACH, NAD NOTED.
[2017-08-10 11:09] LABS: CALC OSMOLALITY 278 mosm/kg (275-300); CALCIUM 8.3 mg/dL (8.5-10.1); CARBON DIOXIDE 26.8 mmol/L (21.0-32.0); CHLORIDE - SERUM 100 mmol/L (98-107); CREATININE - SERUM 0.8 mg/dL (0.6-1.3); GLUCOSE 213 mg/dL (74-106); POTASSIUM - SERUM 3.3 mmol/L (3.5-5.1); SODIUM 136 mmol/L (136-145); UREA NITROGEN 15 mg/dL (7-18); eGFR NON AFRICAN AMERICAN > 90 mL/min (90-120)
--- NOTE | 2017-08-10 11:42 | NUR ---
BLOOD SUGAR OF 216, NO COVERAGE DUE TO PT BEING NPO FOR HEART CATH, PT REFUSED TO WEAR SCDS AT THIS TIME. PT UP AD BEA AROUND UNIT. PT DENIES ANY NEEDS AT THIS TIME, CALL LIGHT IN REACH, NAD NOTED, WILL CONTINUE PLAN OF CARE.
[2017-08-10 11:56] VITALS: BP 105/71
--- NOTE | 2017-08-10 14:00 | NUR ---
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
--- NOTE | 2017-08-10 15:07 | NUR ---
RECEIVED PT BACK FROM X RAY TECH. TR BAND TO RT WRIST, NO BLEEDING OR HEMATOMA NOTED. PLACED PT ON FREQUENT VITALS, PT DENIES ANY NEEDS AT THIS TIME. CALL LIGHT IN REACH, NAD NOTED, WILL CONTINUE TO MONITOR.
[2017-08-10] MEDS ORDERED: LIPITOR10 MG PO (15:59)
[2017-08-10] MEDS ORDERED: GLUCOTROL XL 1010 MG PO (16:08)
[2017-08-10 16:13] VITALS: BP 104/58
--- NOTE | 2017-08-10 17:55 | NUR ---
PROVIDED VERBAL AND WRITTEN DISCHARGE TEACHING TO PT, PT VERBALIZED UNDERSTANDING REGARDING TEACHING. D/C RT AC IV, TIP INTACT. REMOVED TR BAND AND APPLIED 2X2 AND TEGADERM DRESSING, NO BLEEDING OR HEMATOMA NOTED. PT WILL NOTIFY WHEN READY FOR WHEELCHAIR.
--- NOTE | 2017-08-10 19:07 | NUR ---
PT LEFT UNIT AMBULATING, ACCOMPANIED BY FAMILY, NAD NOTED.
--- NOTE | 2017-08-15 13:58 | CN ---
PATIENT NAME:CURTIS MADERA MEDICAL RECORD: [id number] : 72 LOCATION:[facility].2126 ADMIT DATE: 08/09/17 ACCOUNT: [id number] CONSULTING PHYSICIAN: OLIVA MONET MD REFERRING PHYSICIAN: BORA PERSAUD MD DATE OF CONSULTATION: 08/10/2017 HISTORY OF PRESENT ILLNESS: A 47-year-old gentleman with history of coronary artery disease, status post intervention. He has been having intermittent chest pain over the last week to 10 days. Last intervention with non-medicated stent back in January, within window of restenosis. He does continue to smoke less than a pack a day. History of hypertension, hyperlipidemia. We are asked to see him concerning his cardiovascular status. PAST MEDICAL HISTORY: Includes; 1. History of hypertension. 2. Hyperlipidemia. 3. Gastroesophageal reflux disease. 4. Hypothyroidism, on replacement. ALLERGIES: Include PENICILLIN, SULFA, TRAMADOL, GABAPENTIN, and LYRICA. MEDICATIONS: Synthroid 100 mcg daily, Nexium 40 daily, Viibryd 40 mg p.o. daily, Requip 2 mg at bedtime, [place] 5/325 one q. 6 p.r.n., aspirin 325 daily, lisinopril HCT 20/12.5 daily. SOCIAL HISTORY: He continues to smoke. No illicit drug use. He is able to take care of his ADLs. REVIEW OF SYSTEMS: The patient reports easy bruising but reports no swollen glands. The patient reports no fever, no night sweats, no significant weight gain, no significant weight loss. No significant exercise tolerance. The patient reports no dry eyes, no irritation, no vision change. Patient reports no difficulty hearing and no ear pain. Patient reports no frequent nose bleeds or nose and sinus problems. Patient reports on arm pain on exertion. No shortness of breath while lying down. No history of heart murmur. Patient reports no cough, no wheezing or coughing up blood. Patient reports no abdominal pain, no vomiting. Normal appetite. No diarrhea and not vomiting blood. No nausea and no constipation. Patient reports no incontinence. No difficulty urinating. No hematuria. No increased frequency. Patient reports no muscle aches. No weakness, no arthralgias, no back pain. No swelling of the extremities. Patient reports no abnormal mole, no jaundice, no rashes. Reports no loss of consciousness. No weakness and no numbness. No seizures, dizziness, or headaches. The patient reports no depression, no sleep disturbance, feeling safe in a relationship and no alcohol abuse. Patient reports on fatigue. Reports no runny nose or sinus pressure. No itching, no hives, and no frequent sneezing. PHYSICAL EXAMINATION: GENERAL: Pleasant gentleman, in no acute distress. VITAL SIGNS: Blood pressure 110/73, pulse 81 and regular. HEENT: Normocephalic, atraumatic. NECK: No JVD or bruit. HEART: Regular. LUNGS: Joya are clear. CONSULT REPORT [id number] CURTIS MADERA ABDOMEN: Soft, nontender. EXTREMITIES: Pulses 2+. No edema. NEUROLOGIC: Grossly intact. DIAGNOSTIC DATA: ECG without acute change. IMPRESSION: Recurrent angina well within window of restenosis. PLAN: For diagnostic angiography, intervention based on the above. TRANSINT:[id number] Voice Confirmation ID: [id number] DOCUMENT ID: [id number] OLIVA MONET MD at 1358 CC: [id number] DICTATION DATE: 08/10/17 1009 [employer]ER [employer] CUTTER: 08/10/17 1307 DIS IN 08/10/17 [facility] [address] [place] [address]
--- NOTE | 2017-08-15 13:58 | OP ---
PATIENT NAME: CURTIS MADERA MEDICAL RECORD: [id number] :72 LOCATION:D.M2 D.6 ADMISSION DATE:08/09/17 SURGEON: OLIVA MONET MD DATE OF OPERATION: 08/10/2017 PROCEDURE: Left heart catheterization, selective coronary angiography, right radial approach. CATHETERS: [place] catheter and AR diagnostic catheter. The procedure was well tolerated. The patient returned to the hughes, sheath removed and TR band was placed. FINDINGS: Left ventriculography in the 30-degree ZENDEJAS view: Normal wall motion, normal systolic function. CORONARY ANATOMY: LEFT MAIN: Left main is free of disease. LAD: LAD is free of disease. Area of previous stenting is widely patent without evidence of restenosis. No progression of [place] disease. CIRCUMFLEX: Codominant system, free of disease. RIGHT CORONARY ARTERY: Codominant system, free of disease. IMPRESSION: No evidence of restenosis. No progression of [place] disease. LV function remains normal. 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 [address] [place] [address]
== END 2017-08-10 19:42 | disposition home or self-care (01) ==
LOC: D.ER 21:47 → OBSVTIME 23:21 → D.M2 23:21
PROVIDERS: Family Medicine; Internal Medicine Interventional Cardiology; ADMIT Family Medicine
DX: R07.89 Other chest pain (principal); I25.10 Atherosclerotic heart disease of native coronary artery without angina pectoris; Z72.0 Tobacco use; I10 Essential (primary) hypertension; E78.5 Hyperlipidemia, unspecified; K21.9 Gastro-esophageal reflux disease without esophagitis; E03.9 Hypothyroidism, unspecified; E78.1 Pure hyperglyceridemia; E11.65 Type 2 diabetes mellitus with hyperglycemia